=== PATIENT | male | born 1940 | race Caucasian/White ===

== ENCOUNTER 2018-06-24 11:15 | Inpatient (IN) ==
--- NOTE | 2018-06-24 11:26 | Emergency Department Note ---
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 - Related Data Allergies Allergy/AdvReac Type Severity Reaction Status Date / Time No Known Allergies Allergy Verified 06/24/18 11:19 All systems ED: reviewed and negative except as stated. Musculoskeletal: Reports: other (Right leg weakness) Physical Exam - General Limitations: no limitations General appearance: alert, in no apparent distress - Head Head exam: atraumatic, normocephalic, normal inspection - Eye Eye exam: Present: normal appearance, PERRL, EOMI - Chest Chest inspection: Present: normal inspection, symmetric chest wall rise - Respiratory Respiratory exam: Present: normal lung sounds bilaterally - Cardiovascular Cardiovascular exam: Present: regular rate, normal rhythm, normal heart sounds - Abdominal Exam Abdominal exam: Present: soft, Non-Tender. Absent: tenderness, distention, guarding, rebound, rigidity - Neurological Exam Neurological exam: Present: alert, oriented X3, CN II-XII intact, other (He has an unsteady gait and seems to be slightly dragging his right leg. No arm or leg drift) - Expanded Neurological Exam Patient oriented to: Present: person, place, time Speech: Present: fluid speech Cranial nerves: EOM function (II, III, IV, ): Normal, facial sensation (V): Normal, facial palsy (VII): Normal, gag reflex (IX): Normal, spinal accessory function (XI): Normal, tongue deviation (XII): Normal Cerebellar function: finger to nose: Normal, heel to rodriguez: Normal Cerebellar function: Romberg normal Motor strength - LUE: 5/5 Motor strength - RUE: 5/5 Motor strength - LLE: 5 Motor strength - RLE: 5 - Psychiatric Psychiatric exam: Present: normal affect, normal mood - Skin Skin exam: Present: warm, dry, intact, normal color Course Vital Signs Temperature 97.6 F 06/24/18 11:19 Pulse Rate 49 06/24/18 11:19 Respiratory Rate 18 06/24/18 11:19 Blood Pressure 165/74 06/24/18 11:19 O2 Sat by Pulse Oximetry 94 06/24/18 11:19 Temperature 97.6 F 06/24/18 11:19 Pulse Rate 49 06/24/18 11:19 Respiratory Rate 18 06/24/18 11:19 Blood Pressure 165/74 06/24/18 11:19 O2 Sat by Pulse Oximetry 94 06/24/18 11:19 Oxygen Delivery Oxygen Delivery Room Air Medical Decision Making - Lab Data Lab results reviewed: Yes I reviewed the patient's lab results. Lab results narrative: CBC shows thrombocytopenia at 1:15 BMP was unremarkable Troponin was low Result diagrams: 06/24/18 13:02 06/24/18 13:02 Lab Results 06/24/18 06/24/18 06/24/18 Range/Units 13:02 13:02 13:02 WBC 5.9 (4.3-11.1) K/mcL RBC 5.35 (4.19-5.50) M/mcL Hgb 16.9 (12.9-16.9) g/dL Hct 49.3 (37.5-50.1) % MCV 92.1 (83.0-100.0) fL MCH 31.6 (28.0-33.3) pg MCHC 34.3 (31.6-35.5) g/dL RDW 12.7 (11.5-14.5) % Plt Count 115 L (140-400) K/mcL MPV 11.2 (9.4-12.4) fL PT 12.4 H (9.4-12.1) Seconds INR 1.1 APTT 31.4 (26.0-36.0) Seconds Sodium 135 L (136-145) mEq/L Potassium 4.3 (3.5-5.1) mEq/L Chloride 102 (98-107) mEq/L Carbon Dioxide 27 (23-29) mEq/L BUN 22 (8-23) mg/dL Creatinine 1.15 (0.70-1.30) mg/dL Est GFR ( Amer) > 60 (> 60) Est GFR (Non-Af Amer) > 60 (> 60) BUN/Creatinine Ratio 19 (6-26) Glucose 209 H (70-105) mg/dL Calculated Osmolality 289 (280-300) Calcium 8.3 L (8.6-10.3) mg/dL Troponin I < 0.03 (< 0.04) ng/mL - Radiology Data Radiology results reviewed: Yes I reviewed the patient's radiology results. CT brain showed an old lacunar infarct MRI brain showed a small acute infarct in the deep white matter of the right parietal lobe and within the left paracentral rosalio - EKG Data EKG #1 EKG attestation: Yes I reviewed and interpreted this EKG. EKG results narrative: ECG shows sinus bradycardia, 49 bpm, normal intervals, left axis, normal ST and T waves Critical Care Time Critical Care Time: No
[2018-06-24 13:18] LABS: Hematocrit 49.3 % (37.5-50.1); Hemoglobin 16.9 g/dL (12.9-16.9); Mean Corpuscular HGB Conc 34.3 g/dL (31.6-35.5); Mean Corpuscular Hemoglobin 31.6 pg (28.0-33.3); Mean Corpuscular Volume 92.1 fL (83.0-100.0); Mean Platelet Volume 11.2 fL (9.4-12.4); Platelet Count 115 K/mcL (140-400); Red Blood Count 5.35 M/mcL (4.19-5.50); Red Cell Distribution Width 12.7 % (11.5-14.5)
[2018-06-24 13:31] LABS: INR 1.1; Prothrombin Time 12.4 Seconds (9.4-12.1)
[2018-06-24 13:34] LABS: Activated Partial Thrombo Time 31.4 Seconds (26.0-36.0)
[2018-06-24 13:38] LABS: BUN/Creatinine Ratio 19 (6-26); Blood Urea Nitrogen 22 mg/dL (8-23); Calcium 8.3 mg/dL (8.6-10.3); Carbon Dioxide 27 mEq/L (23-29); Chloride 102 mEq/L (98-107); Glucose 209 mg/dL (70-105); Osmolality,Calculated 289 (280-300); Potassium 4.3 mEq/L (3.5-5.1); Sodium 135 mEq/L (136-145); Troponin I < 0.03 ng/mL (< 0.04); eGFR For Non-African Americans > 60 (> 60)
[2018-06-24] MEDS ORDERED: Aspirin 81 MG TAB.CHEW PO SCH (14:00)
[2018-06-24] MEDS ORDERED: Aspirin 81 MG TAB.CHEW PO ONE (15:45)
[2018-06-24] MEDS ORDERED: Naloxone 0.4 MG/ML INJ IVP PRN (16:43)
[2018-06-24] MEDS ORDERED: Dextrose Gel 15 GM/37.5 ML TUBE PO PRN ×2 (16:43)
[2018-06-24] MEDS ORDERED: *HR* Dextrose 50 % in Water (Syg) 50 ML SYRINGE IVP PRN (16:43)
[2018-06-24] MEDS ORDERED: D5% in Water 1,000 ML IVC PRN (16:43)
--- NOTE | 2018-06-24 16:53 | Internal Med History&Physical ---
Date of Encounter: 06/24/18 Time of Encounter: 16:50 Internal Medicine - H&P: HPI Chief complaint: CVA Admitted From: Home Plans for Post Hospital Care: Home History of present illness: Mr. Jiang is a 77 year old male with a PMH of DM and HTN. He denies any prior history of CVA or TIA. He denies any history of A. fib. He presents to [facility] today with a chief complaint of right lower extremity weakness. His last known well was 0900 this morning. He reports that he got out of his car at approximately 0900 and noticed that his right leg was weak and that he was unable to bear weight. He denies any neurological signs or symptoms including headache, vision changes, dizziness, dysarthria, facial droop, confusion, memory changes, disequilibrium, paresthesias or loss of coordination. His symptoms are ongoing without improvement and he continues to have RLE weakness. It does not appear that a stroke alert was called in the ED. By the time of my assessment he was outside of the TPA window. Neuro imaging in the ED includes a CT of the head which was without acute intracranial abnormality. MRI brain revealed a small acute infarct within the deep white matter of the right parietal lobe and within the left paracentral portion of the rosalio. There is an old lacune withing the basal ganglia and mild chronic small vessel ischemic disease in th periventricular white matter of both cerebral hemispheres. Given the finding of an acute CVA he is being admitted admitted for further workup including TTE and B/L carotid dopplers. I will also consult neurology for further evaluation. Past Med Surg Social Fam HX - Past Medical History Medical history: diabetes, hypertension - Past Surgical History Additional surgical history: eye sx - Social History Smoking Status: Former smoker Smokeless Tobacco Status: Yes Alcohol use: rarely, occasionally Drug use: none - Family History Father Hx Family Endocrine Disorder: Yes (DM) Mother Race: Living Status: Age at : 65 Cause of : COLON CANCER Hx Family Cancer: Yes (COLON CANCER) Internal Medicine - H&P: Meds Allergy/AdvReac Type Severity Reaction Status Date / Time No Known Allergies Allergy Verified 06/24/18 11:19 All Systems PM: A 10-system review of systems was performed and is negative for pertinent findings except as documented above in the HPI. Review of systems: REVIEW OF SYSTEMS GENERAL: Negative for any nausea, vomiting, fevers, chills, or weight loss. NEUROLOGIC: Negative for any h/a, blurry vision, blind spots, double vision, facial asymmetry, dysphagia, dysarthria, hemisensory deficits, vertigo. Pos itive for hemiparesis and gait ataxia HEENT: Negative for any head trauma, neck trauma, neck stiffness, photophobia, phonophobia, sinusitis, rhinitis. CARDIAC: Negative for any chest pain, palpitations, tachycardia, dyspnea on exertion, paroxysmal nocturnal dyspnea, peripheral edema. PULMONARY: Negative for any shortness of breath, wheezing, or COPD GASTROINTESTINAL: Negative for any abdominal pain, nausea, vomiting, bright red blood per rectum, melena. GENITOURINARY: Negative for any dysuria, hematuria, incontinence. INTEGUMENTARY: Negative for any rashes, cuts, lesions or bruising - Constitutional Vitals: Temp Pulse Resp BP Pulse Ox 97.6 F 49 18 175/64 93 06/24/18 11:19 06/24/18 14:38 06/24/18 14:38 06/24/18 14:38 06/24/18 14:38 General appearance: Present: A&O X 3 Exam: PHYSICAL EXAMINATION: GENERAL: The patient is an elderly male, NAD, and O 3 HEENT: Head is normocephalic and atraumatic. EOMI, PERRLA NECK: Supple. No carotid bruits. No lymphadenopathy or thyromegaly. LUNGS: Clear to auscultation B/L AP and L. HEART: Regular rate and rhythm, S1, S2 without murmurs, rubs or gallops. ABDOMEN: Soft, nontender, and nondistended. Positive bowel sounds. No hepatosplenomegaly EXTREMITIES: Without any cyanosis, clubbing, rash, lesions or edema. NEUROLOGIC: MENTAL STATUS: A&Ox3, memory intact LANG/SPEECH: Naming and repetition intact, fluent, follows 3-step commands CRANIAL NERVES: II: PERRLA III, IV, : EOMI, no gaze preference or deviation, no nystagmus. V: normal sensation in V1, V2, and V3 segments bilaterally VII: no asymmetry, no nasolabial fold flattening VIII: normal hearing to speech IX, X: normal palatal elevation, no uvular deviation XI: 5/5 head turn and 5/5 shoulder shrug bilaterally XII: midline tongue protrusion MOTOR: 4/5 muscle power in Rt shoulder abductors/adductors, elbow flexors/extensors, 4/5 in Rt hip flexors/extensors, knee flexors/extensors, ankle dorsiflexors and planter flexors. 5/5 muscle power in Lt shoulder abductors/adductors, elbow flexors/extensors, 5/5 in Lt hip flexors/extensors, knee flexors/extensors, ankle dorsiflexors and planter flexors. SENSORY: Normal to touch, pinprick, vibration, temp all limbs No hemineglect, no extinction to double sided stimulation (visual & tactile) Romberg absent COORD: Dysmetria noted with nose to finger on Rt side and heel to rodriguez on Rt side, no tremor STATION: normal stance, no truncal ataxia GAIT: TARAH PSYCHIATRIC: Appropriate affect, denies SI/HI, without agitation or anxiety SKIN: No ulceration or induration present. Internal Med - H&P Results - Labs CBC & Chem 7: 06/24/18 13:02 06/24/18 13:02 Labs: Short CBC 06/24/18 Range/Units 13:02 WBC 5.9 (4.3-11.1) K/mcL Hgb 16.9 (12.9-16.9) g/dL Hct 49.3 (37.5-50.1) % Plt Count 115 L (140-400) K/mcL BMP 06/24/18 13:02 Sodium 135 L Potassium 4.3 Chloride 102 Carbon Dioxide 27 BUN 22 Creatinine 1.15 Glucose 209 H Calcium 8.3 L Cardiac Enzymes 06/24/18 Range/Units 13:02 Troponin I < 0.03 (< 0.04) ng/mL - EKG Data -: EKG Interpreted by Myself EKG shows normal: sinus rhythm Rate: bradycardia - EKG Data Prior EKG available for review: no Interpretation IM: other EKG comments: sinus zana with fascicular block 06/24/18 17:03 - Impressions ITS Impressions Brain MRI 06/24/18 11:34 IMPRESSION: Small acute infarct within the deep white matter of the right parietal lobe and within the left paracentral portion of the rosalio. Old lacune within the basal ganglia and rosalio. Mild chronic small vessel ischemic disease within the periventricular white matter of both cerebral hemispheres. Moderate cerebral atrophy. D/ / 06/24/2018 13:07:16 Tim Chu MD / drea Interpreting Provider: Tim Chu MD Head CT 06/24/18 11:34 IMPRESSION: No acute intracranial abnormality. White matter hypoattenuation described is typical of microvascular ischemic disease or as sequela of dysmyelinating/demyelinating processes. Remote bilateral basal ganglia lacunar stroke. D/ / Cole Stewart / Cole Stewart Interpreting Provider: Cole Stewart - Assessment and plan (1) Stroke Current Visit: Yes Status: Acute Assessment and plan: LKW 0900 06/24/18 Occurred this morning when getting out of car noticed RLE weakness; reports he was unable to bear weight d/t immense weakness; denies RUE impairment. however, his RUE is weaker than LUE on exam Denies any additional neurological s/SX including headache, vision change, paresthesias, dizziness, disequilibrium EKG sinus bradycardia MRI brain reveals a small acute infarct within the deep white matter of the right parietal lobe and within the left paracentral portion of the rosalio There is also an old lacunar within the basal ganglia and rosalio Per my assessment his neurological deficits persist with mild RUE and RLE stren gth 4/5 on right side No additional neurological deficits found on exam Consult neurology; I appreciate your input Start 325 mg by mouth aspirin daily Start 80 mg statin daily PRN hydralazine for SBP greater than 190 Obtain QUIQUE and bilateral carotid Dopplers Place on telemetry NIHSS modified's per protocol Neuro exams per protocol Dysphagia screening Qualifiers: CVA mechanism: embolism Precerebral and cerebral artery: middle cerebral artery Laterality of affected vessel: bilateral Qualified Code(s): 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 (2) Diabetes mellitus Current Visit: Yes Status: Acute Assessment and plan: Continue home basal insulin dose LSSIC AC/HS Diabetic diet adjust as necessary Qualifiers: Diabetes mellitus type: type 2 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: with senior 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 use Diabetes mellitus complication status: without complication Qualified Code(s): E11.9 - Type 2 diabetes mellitus without complications; 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
[2018-06-24] MEDS: *HR* Heparin 5,000 UNIT/ML VIAL SQ SCH (21:05)
[2018-06-24] MEDS: Insulin LISPRO 300 UNITS/3 ML VIAL SQ SCH (21:28)
[2018-06-24] MEDS: Insulin DETEMIR 100 UNIT/ML X5UNITS SQ SCH (21:29)
[2018-06-25 05:00] LABS: Hematocrit 45.4 % (37.5-50.1); Hemoglobin 15.9 g/dL (12.9-16.9); Mean Corpuscular Hemoglobin 32.1 pg (28.0-33.3); Mean Corpuscular Volume 91.7 fL (83.0-100.0); Mean Platelet Volume 11.2 fL (9.4-12.4); Platelet Count 113 K/mcL (140-400); Red Blood Count 4.95 M/mcL (4.19-5.50); Red Cell Distribution Width 12.8 % (11.5-14.5)
[2018-06-25 05:12] LABS: BUN/Creatinine Ratio 16 (6-26); Blood Urea Nitrogen 20 mg/dL (8-23); Calcium 8.5 mg/dL (8.6-10.3); Carbon Dioxide 28 mEq/L (23-29); Chloride 106 mEq/L (98-107); Chol/HDL Ratio 3.1 (0-4.9); Cholesterol 97 mg/dL (< 200); Glucose 129 mg/dL (70-105); HDL Cholesterol 31 mg/dL (40-59); LDL Cholesterol,Calculated 33 mg/dL (0-99); Osmolality,Calculated 294 (280-300); Potassium 3.9 mEq/L (3.5-5.1); Sodium 140 mEq/L (136-145); Triglycerides 167 mg/dL (< 150); eGFR For Non-African Americans 57 (> 60)
--- NOTE | 2018-06-25 06:22 | Electrocardiograph Report ---
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
[2018-06-25] MEDS: *HR* Heparin 5,000 UNIT/ML VIAL SQ SCH ×2 (06:39→16:49)
--- NOTE | 2018-06-25 08:15 | Neurology - Consult Note ---
<Alban Garber - Last Filed: 06/25/18 15:22> Date of Encounter: 06/25/18 Time of Encounter: 08:14 Assessment and Plan (1) Stroke Current Visit: Yes Status: Acute Patient presented with lower extremity weakness with onset 1 hour prior to arriv al to the ED. He denied associated paresthesias, loss of coordination, blurry vision, slurred speech, recent trauma, or history of similar symptoms. CT brain revealed no acute intracranial abnormality with white matter hypoattenuation and remote bilateral basal ganglia lacunar stroke. MRI brain revealed small acute infarct within the deep white matter of the right parietal lobe and within the left paracentral portion of the rosalio, moderate cerebral atrophy, and old lacune within the basal ganglia and rosalio. Echocardiogram revealed LVEF 65% with mild concentric LV hypertrophy. Carotid Doppler revealed nonstenotic plaque bilaterally. Lipid panel reviewed. Start Plavix. Stop Aspirin. Patient was started high intensity statin. PT/OT consulted. 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 Management per primary team. Qualifiers: Hypertension type: essential hypertension Qualified Code(s): I10 - Essential (primary) hypertension (3) Bradycardia Current Visit: Yes Status: Chronic Patient reports recently increasing his home dose of Coreg. (4) Diabetes mellitus Current Visit: Yes Status: Chronic Management per primary team. 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 Jiang is a 77 year old male with a past medical history of hypertension, chronic bradycardia, and diabetes mellitus who presented complaining of lower extremity weakness with onset 1 hour prior to arrival to the ED. Patient reported difficulty bearing weight on his right leg and dragging his foot with ambulation. He denied associated paresthesias, loss of coordination, blurry vision, slurred speech, recent trauma, or history of similar symptoms. In the ED, CT brain revealed no acute intracranial abnormality with white matter hypoattenuation and remote bilateral basal ganglia lacunar stroke. Patient did not receive TPA the ED and right lower extremity weakness is present until this time. MRI brain revealed small acute infarct within the deep white matter of the right parietal lobe and within the left paracentral portion of the rosalio, moderate cerebral atrophy, and old lacune within the basal ganglia and rosalio. Neurology was consulted for further recommendations. Past Med Surg Social Fam HX - Past Medical History Medical history: diabetes, hypertension Additional medical history: HLD prostate ca Psychiatric history: anxiety - Past Surgical History Surgical History: cholecystectomy Additional surgical history: eye sx - Social History Smoking Status: Former smoker Smokeless Tobacco Status: Yes Alcohol use: rarely, occasionally Drug use: none - Family History Father Hx Family Endocrine Disorder: Yes (DM) Mother Race: Living Status: Age at : 65 Cause of : COLON CANCER Hx Family Cancer: Yes (colon) Medications and Allergies Amlodipine Besylate 10 mg PO DAILY 06/25/18 [History] Calcium Carbonate [Calcium] 500 mg PO 06/25/18 [History] Carvedilol [Coreg] 12.5 mg PO BIDWM 06/25/18 [History] Cholecalciferol (D-3) [Vitamin D] 1,000 unit PO DAILY 06/25/18 [History] Insulin ASPART [Novolog Flexpen] 10 unit SQ TIDAC 06/25/18 [History] Insulin Glargine,Hum.rec.anlog [Lantus Solostar] 33 unit SQ DAILY 06/25/18 [History] Lisinopril [Zestril] 20 mg PO DAILY 06/25/18 [History] Oxybutynin [Ditropan] 5 mg PO BID 06/25/18 [History] Pantoprazole Sodium [Protonix] 40 mg PO DAILY 06/25/18 [History] Sertraline [Zoloft] 25 mg PO DAILY 06/25/18 [History] Simvastatin [Zocor] 20 mg PO HS 06/25/18 [History] Tamsulosin HCl [Flomax] 0.4 mg PO DAILY 06/25/18 [History] Triamterene/HCTZ 37.5/25mg [Dyazide] 1 each PO DAILY 06/25/18 [History] Allergy/AdvReac Type Severity Reaction Status Date / Time No Known Allergies Allergy Verified 06/24/18 11:19 All Systems: The remainder of the systems were reviewed and are negative - Constitutional Constitutional ROS IM: no chills, no fever(s), no frequent falls - Nose, Mouth, Throat Nose, mouth and throat: no disequilibrium, no headache(s) - Cardiovascular Cardiovascular ROS IM: no chest pain, no irregular heart rhythm - Gastrointestinal Gastrointestinal: nausea, vomiting, no dyspepsia, no dysphagia - Genitourinary Genitourinary ROS: no dysuria, no urinary frequency, no urinary urgency - Musculoskeletal Musculoskeletal ROS IM: muscle weakness, no back pain, no neck pain - Integumentary Integumentary IM: no new lesions, no rash - Neurological Neurological ROS: focal weakness, weakness, no radicular pain, no tingling - Psychiatric Psychiatric general PM: no anxiety, no depression Physical Examination - Vital Signs Vital Signs: Initial Vital Signs Temp Pulse Resp BP Pulse Ox 97.6 F 49 18 165/74 94 06/24/18 11:19 06/24/18 11:19 06/24/18 11:19 06/24/18 11:19 06/24/18 11:19 - Constitutional General appearance: comfortable - Neurologic Sensorimotor examination: intact Motor examination - right side: 4/5: hip flexors, tibialis Anterior, quadriceps, toe extension (EHL), plantarflexion, 5/5: deltoids, biceps, triceps, wrist flexion, wrist extension, 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 Motor examination - left side: 5/5: deltoids, biceps, triceps, wrist flexion, wrist extension, hip flexors, 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, quadriceps, tibialis Anterior, toe extension (EHL), plantarflexion Detailed sensory examination: intact, light touch Reflex and gait examination: intact Reflexes: Biceps: 2+, Triceps: 2+, Brachioradialis: 2+, Patella: 3+ (right), Achilles: 3+ (right) Mental Status Examination: awake, alert, oriented to person, oriented to place, oriented to time, follows commands appropriately, answers questions appropriately, no agnosia, no aphasia, no aproxia Cranial nerve examination: PERRL, EOMI, visual moreno intact, sensory to face intact, mastication intact, no facial asymmetry is present, no dysarthria, hearing is intact symmetrically, flexes SCM and trapezius muscles symmetrically with full power, tongue protrudes midline, no atrophy or facial fasiculations present Cerebellar examination: no dysmetria, performs finger to nose and heel to rodriguez symmetrically without ataxia, no gait ataxia, no truncal ataxia, no difficulty with rapid alternating movements Results - Laboratory Findings CBC and BMP: 06/25/18 04:27 06/25/18 04:27 Abnormal lab findings: Abnormal lab results Plt Count 113 K/mcL (140-400) L 06/25/18 04:27 PT 12.4 Seconds (9.4-12.1) H 06/24/18 13:02 Est GFR (Non-Af Amer) 57 (> 60) L 06/25/18 04:27 Glucose 129 mg/dL (70-105) H 06/25/18 04:27 Calcium 8.5 mg/dL (8.6-10.3) L 06/25/18 04:27 Triglycerides 167 mg/dL (< 150) H 06/25/18 04:27 VLDL Cholesterol, Calc 33 mg/dL (< 31) H 06/25/18 04:27 HDL Cholesterol 31 mg/dL (40-59) L 06/25/18 04:27 - Diagnostic Findings Additional findings: ITS Impressions Brain MRI 06/24/18 11:34 IMPRESSION: Small acute infarct within the deep white matter of the right parietal lobe and within the left paracentral portion of the rosalio. Old lacune within the basal ganglia and rosalio. Mild chronic small vessel ischemic disease within the periventricular white matter of both cerebral hemispheres. Moderate cerebral atrophy. D/ / 06/24/2018 13:07:16 Tim Chu MD / drea Interpreting Provider: Tim Chu MD Head CT 06/24/18 11:34 IMPRESSION: No acute intracranial abnormality. White matter hypoattenuation described is typical of microvascular ischemic disease or as sequela of dysmyelinating/demyelinating processes. Remote bilateral basal ganglia lacunar stroke. D/ / Cole Stewart / Cole Stewart Interpreting Provider: Cole Stewart Echocardiogram 06/24/18 15:35 Impressions: LVEF 65%. Normal LV chamber size and function. Mild concentric left ventricular hypertrophy. Mild left ventricular diastolic dysfunction. Normal right ventricular structure and function. No evidence of pulmonary hypertension. No significant valvular dysfunction. Negative agitated saline study for intra-cardiac shunting. Left Ventricular Wall Motion: Rest Echo Findings All wall segments showed normal motion. Findings: Study Quality * Technically adequate exam. ECG Findings * Sinus bradycardia. Left Ventricle * LVEF 65%. * Normal LV chamber size and function. * Mild concentric left ventricular hypertrophy. * Mild left ventricular diastolic dysfunction. Right Ventricle * Normal right ventricular structure and function. Left Atrium * Mildly dilated left atrium. Right Atrium * Normal right atrial size. Aortic Valve * Trileaflet aortic valve with normal function. * No aortic regurgitation. * No aortic stenosis. Mitral Valve * Focally calcified mitral valve leaflets. * No mitral regurgitation. * No mitral stenosis. Tricuspid Valve * Normal tricuspid valve structure and function. * Trace tricuspid regurgitation. * No evidence of pulmonary hypertension. Pulmonic Valve * Normal pulmonic valve structure and function. * No pulmonic regurgitation. Aorta * Normally sized aortic root. Pericardium * The pericardium appears normal. IVC * Normal IVC dimensions and inspiratory collapse. Pulmonary Artery * Normal visualized portions of the main pulmonary artery. Consult Discharge Plan - Plan Referrals: Maria De Jesus Zhang MD [Primary Care Provider] - <Jam Monsalve - Last Filed: 06/25/18 15:36> Date of Encounter: 06/25/18 Time of Encounter: 15:30 Assessment and Plan (1) Stroke Current Visit: Yes Status: Acute Case was discussed with the neurology resident as well as the medicine attending. I agree with the assessment and plan as stated above. We will reevaluate him tomorrow. 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 The case was discussed with the neurology resident. I agree with his documentation as stated above. Patient is also had an echocardiogram completed and reveals no evidence of valvular thrombus, ejection fraction was 65%. I did personally review the MRI scan of the brain and agree with the documenttation of the radiologist. Patient does have several stroke risk factors including uncon trolled hypertension, diabetes mellitus. He states he quit smoking many years ago. He is currently taking aspirin 81 mg daily. Lipid panel reveals elevated cholesterol and triglycerides, glucose level was elevated at 207 upon admission. He is alert and oriented and able to provide his own medical history. All Systems: The remainder of the systems were reviewed and are negative Review of Systems: The balance of the systems review is negative. Physical Examination - Vital Signs Vital Signs: Initial Vital Signs Temp Pulse Resp BP Pulse Ox 97.6 F 49 18 165/74 94 06/24/18 11:19 18 11:19 06/24/18 11:19 06/24/18 11:19 06/24/18 11:19 - Exam Exam: The patient was seen and examined independently, I agree with the documentation provided by the resident with regard to the neurologic examination. Results - Laboratory Findings CBC and BMP: 06/25/18 04:27 06/25/18 04:27 Abnormal lab findings: Abnormal lab results Plt Count 113 K/mcL (140-400) L 06/25/18 04:27 PT 12.4 Seconds (9.4-12.1) H 06/24/18 13:02 Est GFR (Non-Af Amer) 57 (> 60) L 06/25/18 04:27 Glucose 129 mg/dL (70-105) H 06/25/18 04:27 Calcium 8.5 mg/dL (8.6-10.3) L 06/25/18 04:27 Triglycerides 167 mg/dL (< 150) H 06/25/18 04:27 VLDL Cholesterol, Calc 33 mg/dL (< 31) H 06/25/18 04:27 HDL Cholesterol 31 mg/dL (40-59) L 06/25/18 04:27
[2018-06-25] MEDS: Insulin LISPRO 300 UNITS/3 ML VIAL SQ SCH ×4 (08:39→22:44)
[2018-06-25] MEDS ORDERED: Aspirin 325 MG TABLET PO SCH (09:00)
[2018-06-25] MEDS: *HR* HYDROcodone/Acet 5/325 mg TABLET PO PRN (12:35)
[2018-06-25] MEDS ORDERED: Lisinopril 20 MG TABLET PO SCH (15:30)
--- NOTE | 2018-06-25 16:30 | Internal Med Progress Note ---
Hospitalist Progress Note - Encounter Date of Encounter: 06/25/18 Time of Encounter: 08:00 - Subjective Interval History: Patient was seen and examined at bedside, daughter is at bedside all questions answered, reports mild spasm of his right lower extremity which started today. He denies any overnight events, tolerating by mouth diet denies pain - Exam Vitals: Temp Pulse Resp BP Pulse Ox 98.4 F 53 18 183/78 94 06/25/18 15:25 06/25/18 15:25 06/25/18 15:25 06/25/18 15:25 06/25/18 15:25 Exam: General: Patient is alert, oriented, no acute distress, overweight Head: atraumatic, normocephalic, Eye: normal appearance, PERRL, no scleral icterus, no conjunctival injection ENT: mucous membranes moist, normal external ear exam Neck: normal inspection, trachea midline, full ROM, no carotid bruits Chest: normal inspection, symmetric chest rise Respiratory: Good respiratory effort. Bilateral breath sounds are clear without wheezing, crackles, or rhonchi. Cardiovascular: bradycardic s1 and s2 No clicks, rubs, gallops, or murmors. Abdomen: Bowel sounds present normoactive x-4 quadrants. Abdomen is soft, nondistended. no Epigastric tenderness. No guarding or rebound. No organomegaly noted, obese musculoskeletal: Spontaneously moving all extremities. 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 Motor examination - left side: 5/5: deltoids, biceps, triceps, wrist flexion, wrist extension, hip flexors, audio recording engineer, quadriceps, tibialis Anterior, toe extension (EHL), plantarflexion Detailed sensory examination: intact, light touch Reflex and gait examination: intact Reflexes: Biceps: 2+, Triceps: 2+, Brachioradialis: 2+, Patella: 3+ (right), Achilles: 3+ (right) Mental Status Examination: awake, alert, oriented to person, oriented to place, oriented to time, follows commands appropriately, answers questions appropriately, no agnosia, no aphasia, no aproxia Cranial nerve examination: PERRL, EOMI, visual moreno intact, sensory to face intact, mastication intact, no facial asymmetry is present, no dysarthria, hearing is intact symmetrically, flexes SCM and trapezius muscles symmetrically with full power, tongue protrudes midline, no atrophy or facial fasiculations present Cerebellar examination: no dysmetria, performs finger to nose and heel to rodriguez symmetrically without ataxia, no gait ataxia, no truncal ataxia, no difficulty with rapid alternating movements - Assessment and Plan (1) Stroke Current Visit: Yes Status: Acute Assessment and Plan: acute infarct within the deep white matter of the right parietal lobe and within the left paracentral portion of the rosalio, moderate cerebral atrophy, and old lacune within the basal ganglia and rosalio with minimal residual weakness CT brain revealed no acute intracranial abnormality with white matter hypoa ttenuation and remote bilateral basal ganglia lacunar stroke. MRI brain revealed small acute infarct within the deep white matter of the right parietal lobe and within the left paracentral portion of the rosalio, moderate cerebral atrophy, and old lacune within the basal ganglia and rosalio. Echocardiogram revealed LVEF 65% with mild concentric LV hypertrophy. Carotid Doppler revealed nonstenotic plaque bilaterally as per neurology . Lipid panel reviewed. Started on Plavix as symptoms occurred on aspirin Started on Lipitor 80 Neuro checks as per protocol We will follow A1c and TSH Neurology recommendations appreciated PT/OT consulted. (2) Diabetes mellitus Current Visit: Yes Status: Chronic Assessment and Plan: Continue home basal insulin dose LSSIC AC/HS Diabetic diet A1c in a.m. (3) HTN (hypertension) Current Visit: Yes Status: Acute Assessment and Plan: Will slowly resume home BP medications if not contraindicated to avoid abrupt drop in blood pressure as he has had a recent stroke. We will start with lisinopril 20 mg We will hold Coreg as he is bradycardic Amlodipine to be resumed in the a.m. We will continue to titrate as per BP (4) DVT prophylaxis Current Visit: Yes Status: Acute Assessment and Plan: Heparin subcutaneous - Time Spent with Patient Total time spent is greater than 50% in coordination of care (as documented) at patient's floor/unit and/or counseling patient: Internal Medicine: Result - Labs CBC & Chem 7: 06/25/18 04:27 06/25/18 04:27 Labs: Short CBC 12/12/18 Range/Units 04:27 WBC 5.8 (4.3-11.1) K/mcL Hgb 15.9 (12.9-16.9) g/dL Hct 45.4 (37.5-50.1) % Plt Count 113 L (140-400) K/mcL BMP 06/25/18 04:27 Sodium 140 Potassium 3.9 Chloride 106 Carbon Dioxide 28 BUN 20 Creatinine 1.22 Glucose 129 H Calcium 8.5 L - ABG Interpretation ABG results: PT/INR, D-dimer PT 12.4 Seconds (9.4-12.1) H 06/24/18 13:02 - Impressions Impressions Echocardiogram 06/24/18 15:35 Impressions: LVEF 65%. Normal LV chamber size and function. Mild concentric left ventricular hypertrophy. Mild left ventricular diastolic dysfunction. Normal right ventricular structure and function. No evidence of pulmonary hypertension. No significant valvular dysfunction. Negative agitated saline study for intra-cardiac shunting. Left Ventricular Wall Motion: Rest Echo Findings All wall segments showed normal motion. Findings: Study Quality * Technically adequate exam. ECG Findings * Sinus bradycardia. Left Ventricle * LVEF 65%. * Normal LV chamber size and function. * Mild concentric left ventricular hypertrophy. * Mild left ventricular diastolic dysfunction. Right Ventricle * Normal right ventricular structure and function. Left Atrium * Mildly dilated left atrium. Right Atrium * Normal right atrial size. Aortic Valve * Trileaflet aortic valve with normal function. * No aortic regurgitation. * No aortic stenosis. Mitral Valve * Focally calcified mitral valve leaflets. * No mitral regurgitation. * No mitral stenosis. Tricuspid Valve * Normal tricuspid valve structure and function. * Trace tricuspid regurgitation. * No evidence of pulmonary hypertension. Pulmonic Valve * Normal pulmonic valve structure and function. * No pulmonic regurgitation. Aorta * Normally sized aortic root. Pericardium * The pericardium appears normal. IVC * Normal IVC dimensions and inspiratory collapse. Pulmonary Artery * Normal visualized portions of the main pulmonary artery. 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
[2018-06-25] MEDS: Ondansetron ODT 4 MG TAB.RAPDIS SL PRN (16:57)
[2018-06-25] MEDS: Insulin DETEMIR 100 UNIT/ML X5UNITS SQ SCH (22:44)
[2018-06-26] MEDS: *HR* Heparin 5,000 UNIT/ML VIAL SQ SCH ×2 (06:59→16:52)
[2018-06-26 07:17] LABS: Thyroid Stimulating Hormone 1.759 mcIU/mL (0.340-5.600)
[2018-06-26 07:37] LABS: Estimated Average Glucose 163 mg/dl; Hemoglobin A1C 7.3 %
--- NOTE | 2018-06-26 08:30 | Neurology Progress Note ---
Date of Encounter: 06/26/18 Time of Encounter: 08:28 Assessment and Plan (1) Stroke Current Visit: Yes Status: Acute At this point his deficits have stabilized. Carotid Doppler study revealed nonstenotic plaquing, echocardiogram was negative for cardioembolic source. At this time I would recommend normalizing his blood pressure. Aggressive management of her stroke risk factors will be paramount. I would recommend discontinuing the aspirin and starting Plavix 75 mg daily. Statin therapy is also standard. He will likely need inpatient rehabilitation therapy. He lives with his son however his son works in his home by himself much of the day. He was walking with a walker even prior to this hospitalization. He would certainly be a fall risk at this point. No further neurologic workup is necessary. I will reevaluate him at your request. 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 Currently sitting up in bed eating his breakfast without difficulty watching television. He is alert and oriented. He denies any further complaints. His deficits of stabilized. His blood pressure is still running in the 170s systolic. Carotid Doppler study reveals nonstenotic plaquing echocardiogram and it revealed no evidence of a cardioembolic source. His neurologic examination is unchanged. Objective - Constitutional Vitals: Temp Pulse Resp BP Pulse Ox 98.0 F 45 16 170/80 95 06/26/18 07:06 06/26/18 07:06 06/26/18 07:06 06/26/18 07:06 06/26/18 07:06 - Neurological Exam Sensorimotor examination: Present: intact Motor examination - right side: 4/5: hip flexors, tibialis Anterior, quadriceps, toe extension (EHL), plantarflexion, 5/5: deltoids, biceps, triceps, claim review medical director Motor examination - left side: 5/5: deltoids, biceps, triceps, wrist flexion, wrist extension, hip flexors, claim review medical director, quadriceps, tibialis Anterior, toe extension (EHL), plantarflexion Sensation intact: Present: intact, light touch Reflex and gait examination: intact Mental Status Examination: Present: awake, alert, oriented to person, oriented to place, oriented to time, follows commands appropriately, answers questions appropriately, no agnosia, no aphasia, no aproxia Cranial nerve examination: Present: PERRL, EOMI, visual moreno intact, sensory to face intact, mastication intact, no facial asymmetry is present, no dysarthria, hearing is intact symmetrically, flexes SCM and trapezius muscles symmetrically with full power, tongue protrudes midline, no atrophy or facial fasiculations present Cerebellar examination: Present: no dysmetria, performs finger to nose and heel to rodriguez symmetrically without ataxia, no gait ataxia, no truncal ataxia, no difficulty with rapid alternating movements Results - Laboratory Findings CBC and BMP: 06/25/18 04:27 06/25/18 04:27 Abnormal lab findings: Abnormal lab results Plt Count 113 K/mcL (140-400) L 06/25/18 04:27 PT 12.4 Seconds (9.4-12.1) H 06/24/18 13:02 Est GFR (Non-Af Amer) 57 (> 60) L 06/25/18 04:27 Glucose 129 mg/dL (70-105) H 06/25/18 04:27 POC Glucose 235 mg/dL (70-99) H 06/25/18 20:36 Hemoglobin A1c 7.3 % (-5.6) H 06/26/18 06:04 Calcium 8.5 mg/dL (8.6-10.3) L 06/25/18 04:27 Triglycerides 167 mg/dL (< 150) H 06/25/18 04:27 VLDL Cholesterol, Calc 33 mg/dL (< 31) H 06/25/18 04:27 HDL Cholesterol 31 mg/dL (40-59) L 06/25/18 04:27 Consult Discharge Plan - Plan Referrals: Maria De Jesus Zhang MD [Primary Care Provider] -
[2018-06-26] MEDS: Insulin LISPRO 300 UNITS/3 ML VIAL SQ SCH ×4 (09:41→21:03)
[2018-06-26] MEDS: amLODIPine 5 MG TABLET PO SCH (09:44)
[2018-06-26] MEDS: Lisinopril 20 MG TABLET PO SCH (09:44)
[2018-06-26] MEDS: *HR* HYDROcodone/Acet 5/325 mg TABLET PO PRN (09:49)
--- NOTE | 2018-06-26 13:24 | Internal Med Progress Note ---
Hospitalist Progress Note - Encounter Date of Encounter: 06/26/18 Time of Encounter: 09:22 - Subjective Interval History: Patient was seen and examined at bedside, he is an agreement with acute rehab, and understands that the [facility] has no bed available. He denies any overnight events, tolerating by mouth diet denies pain. - Exam Vitals: Temp Pulse Resp BP Pulse Ox 98.0 F 50 16 171/69 96 06/26/18 07:06 06/26/18 11:11 06/26/18 11:11 06/26/18 11:11 06/26/18 11:11 Exam: General: Patient is alert, oriented, no acute distress, overweight Head: atraumatic, normocephalic, Eye: normal appearance, PERRL, no scleral icterus, no conjunctival injection ENT: mucous membranes moist, normal external ear exam Neck: normal inspection, trachea midline, full ROM, no carotid bruits Chest: normal inspection, symmetric chest rise Respiratory: Good respiratory effort. Bilateral breath sounds are clear without wheezing, crackles, or rhonchi. Cardiovascular: bradycardic s1 and s2 No clicks, rubs, gallops, or murmors. Abdomen: Bowel sounds present normoactive x-4 quadrants. Abdomen is soft, nondistended. no Epigastric tenderness. No guarding or rebound. No organomegaly noted, obese musculoskeletal: Spontaneously moving all extremities. 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 neuro Sensorimotor examination: intact Motor examination - right side: 4/5: hip flexors, tibialis Anterior, quadriceps, toe extension (EHL), plantarflexion, 5/5: deltoids, biceps, triceps, wrist flexion, wrist extension, toilet attendant Motor examination - left side: 5/5: deltoids, biceps, triceps, wrist flexion, wrist extension, hip flexors, toilet attendant, quadriceps, tibialis Anterior, toe extension (EHL), plantarflexion Detailed sensory examination: intact, light touch Reflex and gait examination: intact Reflexes: Biceps: 2+, Triceps: 2+, Brachioradialis: 2+, Patella: 3+ (right), Achilles: 3+ (right) Mental Status Examination: awake, alert, oriented to person, oriented to place, oriented to time, follows commands appropriately, answers questions a ppropriately, no agnosia, no aphasia, no aproxia Cranial nerve examination: PERRL, EOMI, visual moreno intact, sensory to face intact, mastication intact, no facial asymmetry is present, no dysarthria, hearing is intact symmetrically, flexes SCM and trapezius muscles symmetrically with full power, tongue protrudes midline, no atrophy or facial fasiculations present Cerebellar examination: no dysmetria, performs finger to nose and heel to rodriguez symmetrically without ataxia, no gait ataxia, no truncal ataxia, no difficulty with rapid alternating movements - Assessment and Plan (1) Stroke Current Visit: Yes Status: Acute Assessment and Plan: acute infarct within the deep white matter of the right parietal lobe and within the left paracentral portion of the rosalio, moderate cerebral atrophy, and old lacune within the basal ganglia and rosalio with minimal residual weakness CT brain revealed no acute intracranial abnormality with white matter hypoattenuation and remote bilateral basal ganglia lacunar stroke. MRI brain revealed small acute infarct within the deep white matter of the right parietal lobe and within the left paracentral portion of the rosalio, moderate cerebral atrophy, and old lacune within the basal ganglia and rosalio. Echocardiogram revealed LVEF 65% with mild concentric LV hypertrophy. Carotid Doppler revealed nonstenotic plaque bilaterally as per neurology . Lipid panel reviewed. on Plavix as symptoms occurred on aspirin Started on Lipitor 80 Neuro checks as per protocol We will follow A1c 7.3 TSH 1.759- free t4 0.83 Neurology recommendations appreciated PT/OT - recommend Acute rehab- SW and CM on board (2) Diabetes mellitus Current Visit: Yes Status: Chronic Assessment and Plan: Continue home basal insulin dose [facility] AC/HS Diabetic diet A1c 7.3 was counseled (3) HTN (hypertension) Current Visit: Yes Status: Acute Assessment and Plan: Will slowly resume home BP medications if not contraindicated to avoid abrupt drop in blood pressure as he has had a recent stroke. BP elevated lisnopril increased to 40 mg daily home diuretics started We will hold Coreg as he is bradycardic Amlodipine to be resumed in the a.m. We will continue to titrate as per BP (4) DVT prophylaxis Current Visit: Yes Status: Acute Assessment and Plan: Heparin subcutaneous - Time Spent with Patient Total time spent is greater than 50% in coordination of care (as documented) at patient's floor/unit and/or counseling patient: Internal Medicine: Result - Labs CBC & Chem 7: 06/25/18 04:27 06/25/18 04:27 - ABG Interpretation ABG results: PT/INR, D-dimer PT 12.4 Seconds (9.4-12.1) H 06/24/18 13:02 Consult Discharge Plan - Plan Referrals: Maria De Jesus Zhang MD [Primary Care Provider] - (1) Stroke Qualifiers: CVA mechanism: embolism Precerebral and cerebral artery: middle cerebral artery Laterality of affected vessel: bilateral Qualified Code(s): 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
[2018-06-26] MEDS: Ondansetron ODT 4 MG TAB.RAPDIS SL PRN (13:49)
[2018-06-26] MEDS: Insulin DETEMIR 100 UNIT/ML X5UNITS SQ SCH (21:10)
[2018-06-27] MEDS: *HR* Heparin 5,000 UNIT/ML VIAL SQ SCH ×2 (06:03→17:08)
[2018-06-27] MEDS: Insulin LISPRO 300 UNITS/3 ML VIAL SQ SCH ×4 (08:03→20:27)
[2018-06-27] MEDS: Furosemide 40 MG TABLET PO SCH (10:08)
[2018-06-27] MEDS: amLODIPine 5 MG TABLET PO SCH (10:09)
[2018-06-27] MEDS: Lisinopril 20 MG TABLET PO SCH (10:09)
[2018-06-27] MEDS: *HR* HYDROcodone/Acet 5/325 mg TABLET PO PRN (10:16)
[2018-06-27] MEDS: Ondansetron ODT 4 MG TAB.RAPDIS SL PRN ×2 (10:17→20:26)
--- NOTE | 2018-06-27 10:46 | Internal Med Progress Note ---
Hospitalist Progress Note - Encounter Date of Encounter: 06/27/18 Time of Encounter: 08:00 - Subjective Interval History: Patient was seen and examined at bedside, has no complaints, tolerating PO diet. did have an episode of nausea this AM however he is currently eating breakfast and has no complaints. denies fever, chills, CP, SOB, loss of function in his extremities. - Exam Vitals: Temp Pulse Resp BP Pulse Ox 98.7 F 53 12 175/72 97 06/27/18 06:45 06/27/18 06:45 06/27/18 06:45 06/27/18 06:45 06/27/18 06:45 Exam: General: Patient is alert, oriented, no acute distress, overweight Head: atraumatic, normocephalic, Eye: normal appearance, PERRL, no scleral icterus, no conjunctival injection ENT: mucous membranes moist, normal external ear exam Neck: normal inspection, trachea midline, full ROM, no carotid bruits Chest: normal inspection, symmetric chest rise Respiratory: Good respiratory effort. Bilateral breath sounds are clear without wheezing, crackles, or rhonchi. Cardiovascular: bradycardic s1 and s2 No clicks, rubs, gallops, or murmors. Abdomen: Bowel sounds present normoactive x-4 quadrants. Abdomen is soft, nondistended. no Epigastric tenderness. No guarding or rebound. No organomegaly noted, obese musculoskeletal: Spontaneously moving all extremities. 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 neuro ( as per neurology team) Sensorimotor examination: intact Motor examination - right side: 4/5: hip flexors, tibialis Anterior, quadriceps, toe extension (EHL), plantarflexion, 5/5: deltoids, biceps, triceps, wrist flexion, wrist extension, soil surveyor Motor examination - left side: 5/5: deltoids, biceps, triceps, wrist flexion, wrist extension, hip flexors, soil surveyor, quadriceps, tibialis Anterior, toe extension (EHL), plantarflexion Detailed sensory examination: intact, light touch Reflex and gait examination: intact Reflexes: Biceps: 2+, Triceps: 2+, Brachioradialis: 2+, Patella: 3+ (right), Achilles: 3+ (right) Mental Status Examination: awake, alert, oriented to person, oriented to place, oriented to time, follows commands appropriately, answers questions appropriately, no agnosia, no aphasia, no aproxia Cranial nerve examination: PERRL, EOMI, visual moreno intact, sensory to face intact, mastication intact, no facial asymmetry is present, no dysarthria, hearing is intact symmetrically, flexes SCM and trapezius muscles symmetrically with full power, tongue protrudes midline, no atrophy or facial fasiculations present Cerebellar examination: no dysmetria, performs finger to nose and heel to rodriguez symmetrically without ataxia, no gait ataxia, no truncal ataxia, no difficulty with rapid alternating movements - Assessment and Plan (1) Stroke Current Visit: Yes Status: Acute Assessment and Plan: acute infarct within the deep white matter of the right parietal lobe and within the left paracentral portion of the rosalio, moderate cerebral atrophy, and old lacune within the basal ganglia and rosalio with minimal residual weakness CT brain revealed no acute intracranial abnormality with white matter hypoattenuation and remote bilateral basal ganglia lacunar stroke. MRI brain revealed small acute infarct within the deep white matter of the right parietal lobe and within the left paracentral portion of the rosalio, moderate cerebral atrophy, and old lacune within the basal ganglia and rosalio. Echocardiogram revealed LVEF 65% with mild concentric LV hypertrophy. Carotid Doppler revealed nonstenotic plaque bilaterally Lipid panel reviewed. on Plavix as symptoms occurred on aspirin Started on Lipitor 80 Neuro checks as per protocol We will follow A1c 7.3 TSH 1.759- free t4 0.83 Neurology recommendations appreciated PT/OT - recommend Acute rehab- SW and CM on board cardiology consulted for Holter monitor- as per cardiology team they have reviewed telemetry and recommend OP follow up for holter monitor. (2) Diabetes mellitus Current Visit: Yes Status: Chronic Assessment and Plan: Continue home basal insulin dose [facility] AC/HS Diabetic diet A1c 7.3 was counseled (3) HTN (hypertension) Current Visit: Yes Status: Acute Assessment and Plan: On amlodipine 10 mg by mouth daily Started on Lasix 40 mg by mouth daily Lisinopril 40 mg daily Will consider adding another medication if BP remains uncontrolled Coreg on hold as he has bradycardia. (4) DVT prophylaxis Current Visit: Yes Status: Acute Assessment and Plan: I printed subcutaneous - Time Spent with Patient Total time spent is greater than 50% in coordination of care (as documented) at patient's floor/unit and/or counseling patient: Internal Medicine: Result - Labs CBC & Chem 7: 06/25/18 04:27 06/25/18 04:27 - ABG Interpretation ABG results: PT/INR, D-dimer PT 12.4 Seconds (9.4-12.1) H 06/24/18 13:02 Consult Discharge Plan - Plan Referrals: Maria De Jesus Zhang MD [Primary Care Provider] - (1) Stroke Qualifiers: CVA mechanism: embolism Precerebral and cerebral artery: middle cerebral artery Laterality of affected vessel: bilateral Qualified Code(s): 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
[2018-06-27] MEDS: Insulin DETEMIR 100 UNIT/ML X5UNITS SQ SCH (20:27)
[2018-06-28] MEDS: *HR* Heparin 5,000 UNIT/ML VIAL SQ SCH ×2 (06:18→17:10)
[2018-06-28] MEDS: Insulin LISPRO 300 UNITS/3 ML VIAL SQ SCH ×4 (09:11→21:02)
[2018-06-28] MEDS: Lisinopril 20 MG TABLET PO SCH (09:14)
[2018-06-28] MEDS: Furosemide 40 MG TABLET PO SCH (09:15)
[2018-06-28] MEDS: amLODIPine 5 MG TABLET PO SCH (09:15)
--- NOTE | 2018-06-28 14:55 | Internal Med Progress Note ---
Hospitalist Progress Note - Encounter Date of Encounter: 06/28/18 Time of Encounter: 08:00 - Subjective Interval History: Patient was seen and examined at bedside, has no complaints, tolerating PO diet. Tolerating by mouth diet, nausea resolved. denies fever, chills, CP, SOB, loss of function in his extremities. - Exam Vitals: Temp Pulse Resp BP Pulse Ox 98.2 F 48 17 148/54 97 06/28/18 07:09 06/28/18 07:09 06/28/18 07:09 06/28/18 07:09 06/28/18 07:09 Exam: General: Patient is alert, oriented, no acute distress, overweight Head: atraumatic, normocephalic, Eye: normal appearance, PERRL, no scleral icterus, no conjunctival injection ENT: mucous membranes moist, normal external ear exam Neck: normal inspection, trachea midline, full ROM, no carotid bruits Chest: normal inspection, symmetric chest rise Respiratory: Good respiratory effort. Bilateral breath sounds are clear without wheezing, crackles, or rhonchi. Cardiovascular: bradycardic s1 and s2 No clicks, rubs, gallops, or murmors. Abdomen: Bowel sounds present normoactive x-4 quadrants. Abdomen is soft, nondistended. no Epigastric tenderness. No guarding or rebound. No organomegaly noted, obese musculoskeletal: Spontaneously moving all extremities. 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 neuro ( as per neurology team) Sensorimotor examination: intact Motor examination - right side: 4/5: hip flexors, tibialis Anterior, quadriceps, toe extension (EHL), plantarflexion, 5/5: deltoids, biceps, triceps, wrist flexion, wrist extension, manager music Motor examination - left side: 5/5: deltoids, biceps, triceps, wrist flexion, wrist extension, hip flexors, manager music, quadriceps, tibialis Anterior, toe extension (EHL), plantarflexion Detailed sensory examination: intact, light touch Reflex and gait examination: intact Reflexes: Biceps: 2+, Triceps: 2+, Brachioradialis: 2+, Patella: 3+ (right), Achilles: 3+ (right) Mental Status Examination: awake, alert, oriented to person, oriented to place, oriented to time, follows commands appropriately, answers questions appropriately, no agnosia, no aphasia, no aproxia Cranial nerve examination: PERRL, EOMI, visual moreno intact, sensory to face intact, mastication intact, no facial asymmetry is present, no dysarthria, hearing is intact symmetrically, flexes SCM and trapezius muscles symmetrically with full power, tongue protrudes midline, no atrophy or facial fasiculations present Cerebellar examination: no dysmetria, performs finger to nose and heel to rodriguez symmetrically without ataxia, no gait ataxia, no truncal ataxia, no difficulty with rapid alternating movements - Assessment and Plan (1) Stroke Current Visit: Yes Status: Acute Assessment and Plan: acute infarct within the deep white matter of the right parietal lobe and within the left paracentral portion of the rosalio, moderate cerebral atrophy, and old lacune within the basal ganglia and rosalio with minimal residual weakness CT brain revealed no acute intracranial abnormality with white matter hypoattenuation and remote bilateral basal ganglia lacunar stroke. MRI brain revealed small acute infarct within the deep white matter of the right parietal lobe and within the left paracentral portion of the rosalio, moderate cerebral atrophy, and old lacune within the basal ganglia and rosalio. Echocardiogram revealed LVEF 65% with mild concentric LV hypertrophy. Carotid Doppler revealed nonstenotic plaque bilaterally Lipid panel reviewed. on Plavix as symptoms occurred on aspirin Started on Lipitor 80 Neuro checks as per protocol We will follow A1c 7.3 TSH 1.759- free t4 0.83 Neurology recommendations appreciated PT/OT - recommend Acute rehab- SW and CM on board cardiology consulted for Holter monitor- as per cardiology team they have reviewed telemetry and recommend OP follow up for holter monitor. (2) Diabetes mellitus Current Visit: Yes Status: Chronic Assessment and Plan: Continue home basal insulin dose [facility] AC/HS Diabetic diet A1c 7.3 was counseled (3) HTN (hypertension) Current Visit: Yes Status: Acute Assessment and Plan: On amlodipine 10 mg by mouth daily Started on Lasix 40 mg by mouth daily Lisinopril 40 mg daily Will consider adding another medication if BP remains uncontrolled Coreg on hold as he has bradycardia. (4) DVT prophylaxis Current Visit: Yes Status: Acute Assessment and Plan: Heparin subcutaneous - Time Spent with Patient Total time spent is greater than 50% in coordination of care (as documented) at patient's floor/unit and/or counseling patient: Internal Medicine: Result - Labs CBC & Chem 7: 06/25/18 04:27 06/25/18 04:27 - ABG Interpretation ABG results: PT/INR, D-dimer PT 12.4 Seconds (9.4-12.1) H 06/24/18 13:02 Consult Discharge Plan - Plan Referrals: Maria De Jesus Zhang MD [Primary Care Provider] - (1) Stroke Qualifiers: CVA mechanism: embolism Precerebral and cerebral artery: middle cerebral artery Laterality of affected vessel: bilateral Qualified Code(s): 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
[2018-06-28] MEDS: Ondansetron ODT 4 MG TAB.RAPDIS SL PRN (16:59)
[2018-06-28] MEDS: Insulin DETEMIR 100 UNIT/ML X5UNITS SQ SCH (21:02)
[2018-06-29] MEDS: *HR* Heparin 5,000 UNIT/ML VIAL SQ SCH ×2 (05:13→17:35)
[2018-06-29] MEDS: Insulin LISPRO 300 UNITS/3 ML VIAL SQ SCH ×4 (08:20→20:35)
[2018-06-29 08:28] LABS: BUN/Creatinine Ratio 20 (6-26); Blood Urea Nitrogen 20 mg/dL (8-23); Calcium 8.7 mg/dL (8.6-10.3); Carbon Dioxide 31 mEq/L (23-29); Chloride 104 mEq/L (98-107); Glucose 113 mg/dL (70-105); Osmolality,Calculated 291 (280-300); Potassium 3.9 mEq/L (3.5-5.1); Sodium 139 mEq/L (136-145); eGFR For Non-African Americans > 60 (> 60)
[2018-06-29] MEDS: Lisinopril 20 MG TABLET PO SCH (09:32)
[2018-06-29] MEDS: Furosemide 40 MG TABLET PO SCH (09:32)
[2018-06-29] MEDS: hydrALAZINE 25 MG TABLET PO SCH ×3 (09:32→23:57)
[2018-06-29] MEDS: amLODIPine 5 MG TABLET PO SCH (09:32)
--- NOTE | 2018-06-29 11:27 | Internal Med Progress Note ---
Hospitalist Progress Note - Encounter Date of Encounter: 06/29/18 Time of Encounter: 08:00 - Subjective Interval History: Patient was seen and examined at bedside, has no complaints, tolerating PO diet. Tolerating by mouth diet, nausea resolved. denies fever, chills, CP, SOB, loss of function in his extremities. - Exam Vitals: Temp Pulse Resp BP Pulse Ox 97.8 F 48 15 171/69 96 06/29/18 07:04 06/29/18 07:04 06/29/18 07:04 06/29/18 07:04 06/29/18 10:18 Exam: General: Patient is alert, oriented, no acute distress, overweight Head: atraumatic, normocephalic, Eye: normal appearance, PERRL, no scleral icterus, no conjunctival injection ENT: mucous membranes moist, normal external ear exam Neck: normal inspection, trachea midline, full ROM, no carotid bruits Chest: normal inspection, symmetric chest rise Respiratory: Good respiratory effort. Bilateral breath sounds are clear without wheezing, crackles, or rhonchi. Cardiovascular: bradycardic s1 and s2 No clicks, rubs, gallops, or murmors. Abdomen: Bowel sounds present normoactive x-4 quadrants. Abdomen is soft, nondistended. no Epigastric tenderness. No guarding or rebound. No organomegaly noted, obese musculoskeletal: Spontaneously moving all extremities. 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 neuro ( as per neurology team) Sensorimotor examination: intact Motor examination - right side: 4/5: hip flexors, tibialis Anterior, quadriceps, toe extension (EHL), plantarflexion, 5/5: deltoids, biceps, triceps, wrist flexion, wrist extension, head animal trainer Motor examination - left side: 5/5: deltoids, biceps, triceps, wrist flexion, wrist extension, hip flexors, head animal trainer, quadriceps, tibialis Anterior, toe extension (EHL), plantarflexion Detailed sensory examination: intact, light touch Reflex and gait examination: intact Reflexes: Biceps: 2+, Triceps: 2+, Brachioradialis: 2+, Patella: 3+ (right), Achilles: 3+ (right) Mental Status Examination: awake, alert, oriented to person, oriented to place, oriented to time, follows commands appropriately, answers questions appropriately, no agnosia, no aphasia, no aproxia Cranial nerve examination: PERRL, EOMI, visual moreno intact, sensory to face intact, mastication intact, no facial asymmetry is present, no dysarthria, hearing is intact symmetrically, flexes SCM and trapezius muscles symmetrically with full power, tongue protrudes midline, no atrophy or facial fasiculations present Cerebellar examination: no dysmetria, performs finger to nose and heel to rodriguez symmetrically without ataxia, no gait ataxia, no truncal ataxia, no difficulty with rapid alternating movements - Assessment and Plan (1) Stroke Current Visit: Yes Status: Acute Assessment and Plan: acute infarct within the deep white matter of the right parietal lobe and within the left paracentral portion of the rosalio, moderate cerebral atrophy, and old lacune within the basal ganglia and rosalio with minimal residual weakness CT brain revealed no acute intracranial abnormality with white matter hypoattenuation and remote bilateral basal ganglia lacunar stroke. MRI brain revealed small acute infarct within the deep white matter of the right parietal lobe and within the left paracentral portion of the rosalio, moderate cerebral atrophy, and old lacune within the basal ganglia and rosalio. Echocardiogram revealed LVEF 65% with mild concentric LV hypertrophy. Carotid Doppler revealed nonstenotic plaque bilaterally Lipid panel reviewed. on Plavix as symptoms occurred on aspirin Started on Lipitor 80 Neuro checks as per protocol We will follow A1c 7.3 TSH 1.759- free t4 0.83 Neurology recommendations appreciated PT/OT - recommend Acute rehab- SW and CM on board cardiology consulted for Holter monitor- as per cardiology team they have reviewed telemetry and recommend OP follow up for holter monitor. (2) Diabetes mellitus Current Visit: Yes Status: Chronic Assessment and Plan: Continue home basal insulin dose [facility] AC/HS Diabetic diet A1c 7.3 was counseled (3) HTN (hypertension) Current Visit: Yes Status: Acute Assessment and Plan: On amlodipine 10 mg by mouth daily Started on Lasix 40 mg by mouth daily Lisinopril 40 mg daily Hydralazine 25 mg 3 times a day Coreg on hold as he has bradycardia. (4) DVT prophylaxis Current Visit: Yes Status: Acute Assessment and Plan: Heparin subcutaneous - Time Spent with Patient Total time spent is greater than 50% in coordination of care (as documented) at patient's floor/unit and/or counseling patient: Internal Medicine: Result - Labs CBC & Chem 7: 06/25/18 04:27 06/29/18 07:49 Labs: BMP 06/29/18 07:49 Sodium 139 Potassium 3.9 Chloride 104 Carbon Dioxide 31 H BUN 20 Creatinine 0.98 Glucose 113 H Calcium 8.7 - ABG Interpretation ABG results: PT/INR, D-dimer PT 12.4 Seconds (9.4-12.1) H 06/24/18 13:02 Consult Discharge Plan - Plan Referrals: Maria De Jesus Zhang MD [Primary Care Provider] - (1) Stroke Qualifiers: CVA mechanism: embolism Precerebral and cerebral artery: middle cerebral artery Laterality of affected vessel: bilateral Qualified Code(s): 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
[2018-06-29] MEDS: Ondansetron ODT 4 MG TAB.RAPDIS SL PRN (12:45)
[2018-06-29] MEDS: Psyllium 1 PACKET POWD.PACK PO SCH ×2 (19:10→20:40)
[2018-06-29] MEDS: Insulin DETEMIR 100 UNIT/ML X5UNITS SQ SCH (20:34)
[2018-06-30] MEDS: *HR* Heparin 5,000 UNIT/ML VIAL SQ SCH ×2 (05:24→17:55)
[2018-06-30] MEDS: Insulin LISPRO 300 UNITS/3 ML VIAL SQ SCH ×4 (08:26→21:01)
[2018-06-30] MEDS: hydrALAZINE 25 MG TABLET PO SCH ×3 (08:26→21:00)
[2018-06-30] MEDS: Furosemide 40 MG TABLET PO SCH (08:26)
[2018-06-30] MEDS: amLODIPine 5 MG TABLET PO SCH (08:27)
[2018-06-30] MEDS: Lisinopril 20 MG TABLET PO SCH (08:27)
[2018-06-30] MEDS: Psyllium 1 PACKET POWD.PACK PO SCH ×3 (08:37→21:03)
--- NOTE | 2018-06-30 09:43 | Internal Med Progress Note ---
Hospitalist Progress Note - Encounter Date of Encounter: 06/30/18 Time of Encounter: 09:42 - Subjective Interval History: Patient was seen and examined at bedside, has no complaints, tolerating PO diet. Tolerating by mouth diet, nausea resolved. denies fever, chills, CP, SOB, loss of function in his extremities. - Exam Vitals: Temp Pulse Resp BP Pulse Ox 98.0 F 48 18 156/60 97 06/30/18 07:03 06/30/18 07:03 06/30/18 07:03 06/30/18 07:03 06/30/18 07:03 Exam: General: Patient is alert, oriented, no acute distress, overweight Head: atraumatic, normocephalic, Eye: normal appearance, PERRL, no scleral icterus, no conjunctival injection ENT: mucous membranes moist, normal external ear exam Neck: normal inspection, trachea midline, full ROM, no carotid bruits Chest: normal inspection, symmetric chest rise Respiratory: Good respiratory effort. Bilateral breath sounds are clear without wheezing, crackles, or rhonchi. Cardiovascular: bradycardic s1 and s2 No clicks, rubs, gallops, or murmors. Abdomen: Bowel sounds present normoactive x-4 quadrants. Abdomen is soft, nondistended. no Epigastric tenderness. No guarding or rebound. No organomegaly noted, obese musculoskeletal: Spontaneously moving all extremities. 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 neuro ( as per neurology team) Sensorimotor examination: intact Motor examination - right side: 4/5: hip flexors, tibialis Anterior, quadriceps, toe extension (EHL), plantarflexion, 5/5: deltoids, biceps, triceps, wrist flexion, wrist extension, inspector wire products Motor examination - left side: 5/5: deltoids, biceps, triceps, wrist flexion, wrist extension, hip flexors, inspector wire products, quadriceps, tibialis Anterior, toe extension (EHL), plantarflexion Detailed sensory examination: intact, light touch Reflex and gait examination: intact Reflexes: Biceps: 2+, Triceps: 2+, Brachioradialis: 2+, Patella: 3+ (right), Achilles: 3+ (right) Mental Status Examination: awake, alert, oriented to person, oriented to place, oriented to time, follows commands appropriately, answers questions appropriately, no agnosia, no aphasia, no aproxia Cranial nerve examination: PERRL, EOMI, visual moreno intact, sensory to face intact, mastication intact, no facial asymmetry is present, no dysarthria, hearing is intact symmetrically, flexes SCM and trapezius muscles symmetrically with full power, tongue protrudes midline, no atrophy or facial fasiculations present Cerebellar examination: no dysmetria, performs finger to nose and heel to rodriguez symmetrically without ataxia, no gait ataxia, no truncal ataxia, no difficulty with rapid alternating movements - Assessment and Plan (1) Stroke Current Visit: Yes Status: Acute Assessment and Plan: acute infarct within the deep white matter of the right parietal lobe and within the left paracentral portion of the rosalio, moderate cerebral atrophy, and old lacune within the basal ganglia and rosalio with minimal residual weakness CT brain revealed no acute intracranial abnormality with white matter hypoattenuation and remote bilateral basal ganglia lacunar stroke. MRI brain revealed small acute infarct within the deep white matter of the right parietal lobe and within the left paracentral portion of the rosalio, moderate cerebral atrophy, and old lacune within the basal ganglia and rosalio. Echocardiogram revealed LVEF 65% with mild concentric LV hypertrophy. Carotid Doppler revealed nonstenotic plaque bilaterally Lipid panel reviewed. on Plavix as symptoms occurred on aspirin Started on Lipitor 80 Neuro checks as per protocol We will follow A1c 7.3 TSH 1.759- free t4 0.83 Neurology recommendations appreciated PT/OT - recommend Acute rehab- SW and CM on board cardiology consulted for Holter monitor- as per cardiology team they have reviewed telemetry and recommend OP follow up for holter monitor. (2) Diabetes mellitus Current Visit: Yes Status: Chronic Assessment and Plan: Continue home basal insulin dose [facility] AC/HS Diabetic diet A1c 7.3 was counseled (3) HTN (hypertension) Current Visit: Yes Status: Acute Assessment and Plan: On amlodipine 10 mg by mouth daily Started on Lasix 40 mg by mouth daily Lisinopril 40 mg daily Hydralazine increased to 50 mg BID Coreg on hold as he has bradycardia. (4) DVT prophylaxis Current Visit: Yes Status: Acute Assessment and Plan: Heparin subcutaneous - Time Spent with Patient Total time spent is greater than 50% in coordination of care (as documented) at patient's floor/unit and/or counseling patient: Internal Medicine: Result - Labs CBC & Chem 7: 06/25/18 04:27 06/29/18 07:49 - ABG Interpretation ABG results: PT/INR, D-dimer PT 12.4 Seconds (9.4-12.1) H 06/24/18 13:02 Consult Discharge Plan - Plan Referrals: Maria De Jesus Zhang MD [Primary Care Provider] - (1) Stroke Qualifiers: CVA mechanism: embolism Precerebral and cerebral artery: middle cerebral artery Laterality of affected vessel: bilateral Qualified Code(s): 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
[2018-06-30] MEDS: Insulin DETEMIR 100 UNIT/ML X5UNITS SQ SCH (21:00)
[2018-07-01] MEDS: *HR* Heparin 5,000 UNIT/ML VIAL SQ SCH (06:17)
[2018-07-01] MEDS: Furosemide 40 MG TABLET PO SCH (09:03)
[2018-07-01] MEDS: amLODIPine 5 MG TABLET PO SCH (09:03)
[2018-07-01] MEDS: Psyllium 1 PACKET POWD.PACK PO SCH (09:04)
[2018-07-01] MEDS: Lisinopril 20 MG TABLET PO SCH (09:04)
[2018-07-01] MEDS: hydrALAZINE 25 MG TABLET PO SCH (09:04)
[2018-07-01] MEDS: Insulin LISPRO 300 UNITS/3 ML VIAL SQ SCH (09:05)
--- NOTE | 2018-07-01 09:51 | Discharge Summary ---
- NOTES TO OUTPATIENT PROVIDER Notes to Outpatient Provider: follow BP and adjust medications accordingly. needs OP follow up with cardiology for holter monitor placement. follow A1c was 7.3 on 06/26. 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 (2) Diabetes mellitus Priority: Secondary Status: Chronic Qualifiers: Diabetes mellitus type: type 2 Diabetes mellitus terminal computer operator insulin use: with terminal computer operator use Diabetes mellitus complication status: without complication Qualified Code(s): E11.9 - Type 2 diabetes mellitus without complications; Z79.4 - [facility] (current) use of insulin (3) HTN (hypertension) Priority: Secondary Status: Acute Qualifiers: Hypertension type: essential hypertension Qualified Code(s): I10 - Essential (primary) hypertension (4) DVT prophylaxis Priority: Secondary Status: Acute Hospital course: Mr. Jiang is a 77 year old male PMH of DM and HTN. He denies any prior history of CVA or TIA. He denies any history of A. fib. He presents to [facility] today with a chief complaint of right lower extremity weakness. Neuro imaging in the ED includes a CT of the head which was without acute intracranial abnormality. MRI brain revealed a small acute infarct within the deep white matter of the right parietal lobe and within the left paracentral portion of the rosalio. There is an old lacune withing the basal ganglia and mild chronic small vessel ischemic disease in th periventricular white matter of both cerebral hemispheres. He was admitted for further workup of acute CVA. Neurology was consulted and aspirin was changed to Plavix as symptoms started while patient was on aspirin at home. He was started on high intensity statin. A1c was 7.3 and he was counseled on importance of compliance with his insulin. Blood pressure remained elevated throughout admission and medications were adjusted with better control of the blood pressure. He remained bradycardic so beta blockers were discontinued. cardiology consulted for Holter monitor- as per cardiology team they have reviewed telemetry and recommend OP follow up for holter monitor. CT brain revealed no acute intracranial abnormality with white matter hypoattenuation and remote bilateral basal ganglia lacunar stroke. MRI brain revealed small acute infarct within the deep white matter of the right parietal lobe and within the left paracentral portion of the rosalio, moderate cerebral atrophy, and old lacune within the basal ganglia and rosalio. Echocardiogram revealed LVEF 65% with mild concentric LV hypertrophy. Carotid Doppler revealed nonstenotic plaque bilaterally PT and OT were consulted and recommended acute rehabilitation. patient registration manager and psychosocial rehabilitation counselor facilitated acceptance at acute rehabilitation at the [facility]. Per PCP to follow BMP for electrolytes and renal function. To follow A1c in 3 months and adjust insulin as per fingersticks. Follow BP and adjust medications. Discharge discussed with: patient, family, nurse, social work, case management, speech correction consultant Time spent discussing smoking cessation with patient: more than 10 minutes - Time Spent with Patient Total time spent providing and/or coordinating discharge services: Greater than 30 minutes (45) - Discharge Medications Prescriptions: Amlodipine Besylate 10 mg PO DAILY #30 tablet Atorvastatin [Lipitor] 80 mg PO HS 30 Days #60 tablet Clopidogrel [Plavix] 75 mg PO DAILY #30 tablet Furosemide [Lasix] 40 mg PO DAILY #30 tablet hydrALAZINE [HydrALAZINE] 50 mg PO Q12H 30 Days #120 tablet Lisinopril [Zestril] 40 mg PO DAILY #60 tablet Home Medications: Calcium Carbonate [Calcium] 500 mg PO 06/25/18 [History] Cholecalciferol (D-3) [Vitamin D] 1,000 unit PO DAILY 06/25/18 [History] Insulin ASPART [Novolog Flexpen] 10 unit SQ TIDAC 06/25/18 [History] Insulin Glargine,Hum.rec.anlog [Lantus Solostar] 33 unit SQ DAILY 06/25/18 [History] Pantoprazole Sodium [Protonix] 40 mg PO DAILY 06/25/18 [History] Sertraline [Zoloft] 25 mg PO DAILY 06/25/18 [History] Tamsulosin HCl [Flomax] 0.4 mg PO DAILY 06/25/18 [History] Amlodipine Besylate 10 mg PO DAILY #30 tablet 07/01/18 [Rx] Atorvastatin [Lipitor] 80 mg PO HS 30 Days #60 tablet 07/01/18 [Rx] Clopidogrel [Plavix] 75 mg PO DAILY #30 tablet 07/01/18 [Rx] Furosemide [Lasix] 40 mg PO DAILY #30 tablet 07/01/18 [Rx] Lisinopril [Zestril] 40 mg PO DAILY #60 tablet 07/01/18 [Rx] hydrALAZINE [HydrALAZINE] 50 mg PO Q12H 30 Days #120 tablet 07/01/18 [Rx] Allergies/Adverse Reactions: Allergy/AdvReac Type Severity Reaction Status Date / Time No Known Allergies Allergy Verified 06/24/18 11:19 Date of admission: 06/24/18 17:18 Primary care physician: Maria De Jesus Zhang MD Consults: 06/24/18 16:37 Consult to Neurology [CONS] Stat Consulting Provider: Neurology [facility] Reason for Consult: CVA Time Notified: 16:43 Call Completed: Yes Consult to Occupational Therapy [CONS] Stat Comment: Evaluate, develop and implement POC Reason for Consult: cva, assess for deficits prior to d/c Does patient have active BEDREST order?: No Is patient medically & hemodynamically stable?: Yes Patient assessed for mobility or mobilized this visit?: Yes Consult to Physical Therapy [CONS] Stat Comment: Evaluate, develop and implement POC Reason for Consult: cva, assess for d/c needs Does patient have active BEDREST order?: No Is patient medically & hemodynamically stable?: Yes Patient assessed for mobility or mobilized this visit?: Yes 06/29/18 19:08 Consult to Washer Machine [CONS] Routine Reason for SW Consult: patient is going to [facility] for rehab after stroke - Constitutional Vitals: Temp Pulse Resp BP Pulse Ox 97.9 F 53 16 146/52 96 07/01/18 06:50 07/01/18 06:50 07/01/18 06:50 07/01/18 06:50 07/01/18 06:50 General appearance: Present: A&O X 3 Exam: General: Patient is alert, oriented, no acute distress, overweight Head: atraumatic, normocephalic, Eye: normal appearance, PERRL, no scleral icterus, no conjunctival injection ENT: mucous membranes moist, normal external ear exam Neck: normal inspection, trachea midline, full ROM, no carotid bruits Chest: normal inspection, symmetric chest rise Respiratory: Good respiratory effort. Bilateral breath sounds are clear without wheezing, crackles, or rhonchi. Cardiovascular: bradycardic s1 and s2 No clicks, rubs, gallops, or murmors. Abdomen: Bowel sounds present normoactive x-4 quadrants. Abdomen is soft, nondistended. no Epigastric tenderness. No guarding or rebound. No organomegaly noted, obese musculoskeletal: Spontaneously moving all extremities. 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 neuro ( as per neurology team) Sensorimotor examination: intact Motor examination - right side: 4/5: hip flexors, tibialis Anterior, quadriceps, toe extension (EHL), plantarflexion, 5/5: deltoids, biceps, triceps, wrist flexion, wrist extension, community health educator Motor examination - left side: 5/5: deltoids, biceps, triceps, wrist flexion, wrist extension, hip flexors, community health educator, quadriceps, tibialis Anterior, toe extension (EHL), plantarflexion Detailed sensory examination: intact, light touch Reflex and gait examination: intact Reflexes: Biceps: 2+, Triceps: 2+, Brachioradialis: 2+, Patella: 3+ (right), Achilles: 3+ (right) Mental Status Examination: awake, alert, oriented to person, oriented to place, oriented to time, follows commands appropriately, answers questions appropriately, no agnosia, no aphasia, no aproxia Cranial nerve examination: PERRL, EOMI, visual moreno intact, sensory to face intact, mastication intact, no facial asymmetry is present, no dysarthria, hearing is intact symmetrically, flexes SCM and trapezius muscles symmetrically with full power, tongue protrudes midline, no atrophy or facial fasiculations present Cerebellar examination: no dysmetria, performs finger to nose and heel to rodriguez symmetrically without ataxia, no gait ataxia, no truncal ataxia, no difficulty with rapid alternating movements - Patient Status Disposition: Transfer Inpatient Rehab Fac Condition: Good Functional capacity at discharge: independent ambulation Overall status at discharge: patient is progressing back to baseline - Discharge Instructions Follow Up With: Maria De Jesus Zhang MD [Primary Care Provider] - - Diet and Activity Activity: as per physical therapy Diet: diabetic diet, low salt diet
--- NOTE | 2018-07-01 10:02 | Physician Discharge Referral ---
ExtendedCare Referral Info Transfer To: [facility] acute [facility] Provider in Charge after Transfer: PCP Institutional Level of Care: Skilled - Diagnosis (1) Stroke Priority: Primary Status: Acute (2) Diabetes mellitus Priority: Secondary Status: Chronic (3) HTN (hypertension) Priority: Secondary Status: Acute (4) DVT prophylaxis Priority: Secondary Status: Acute Prognosis: Good Aware of Diagnosis: Patient Aware of Prognosis: Patient - Transfer Medications Prescriptions: Amlodipine Besylate 10 mg PO DAILY #30 tablet Atorvastatin [Lipitor] 80 mg PO HS 30 Days #60 tablet Clopidogrel [Plavix] 75 mg PO DAILY #30 tablet Furosemide [Lasix] 40 mg PO DAILY #30 tablet hydrALAZINE [HydrALAZINE] 50 mg PO Q12H 30 Days #120 tablet Lisinopril [Zestril] 40 mg PO DAILY #60 tablet Home Medications: Calcium Carbonate [Calcium] 500 mg PO 06/25/18 [History] Cholecalciferol (D-3) [Vitamin D] 1,000 unit PO DAILY 06/25/18 [History] Insulin ASPART [Novolog Flexpen] 10 unit SQ TIDAC 06/25/18 [History] Insulin Glargine,Hum.rec.anlog [Lantus Solostar] 33 unit SQ DAILY 06/25/18 [His tory] Pantoprazole Sodium [Protonix] 40 mg PO DAILY 06/25/18 [History] Sertraline [Zoloft] 25 mg PO DAILY 06/25/18 [History] Tamsulosin HCl [Flomax] 0.4 mg PO DAILY 06/25/18 [History] Amlodipine Besylate 10 mg PO DAILY #30 tablet 07/01/18 [Rx] Atorvastatin [Lipitor] 80 mg PO HS 30 Days #60 tablet 07/01/18 [Rx] Clopidogrel [Plavix] 75 mg PO DAILY #30 tablet 07/01/18 [Rx] Furosemide [Lasix] 40 mg PO DAILY #30 tablet 07/01/18 [Rx] Lisinopril [Zestril] 40 mg PO DAILY #60 tablet 07/01/18 [Rx] hydrALAZINE [HydrALAZINE] 50 mg PO Q12H 30 Days #120 tablet 07/01/18 [Rx] Allergies/Adverse Reactions: Allergy/AdvReac Type Severity Reaction Status Date / Time No Known Allergies Allergy Verified 06/24/18 11:19 - Respiratory Orders Smoking Cessation: Smoking cessation has been advised. For more information, call the [place] Tobacco Quit Line at 6-025-TOHR-NOW. - Lab Orders Lab Orders: Other (include drug levels w/frequency) (bmp for electrolytes and renal function) - Rehabiliation Orders Rehab Orders: Sternal Precautions, ROM Exercises, Evaluation for Physical Therapy, Evaluation for Occupational Therapy - Treatments Skin tear care topically daily PRN per policy, May check for fecal impaction rectally daily PRN - Diet Orders Cardiac (diabetic) CERTIFICATION: I certify that the transfer of the above named patient to an Extended Care Facility is necessary for the continuing treatment of the diagnosis listed. The above information is true and accurate reflection of patient's current condition. Confidential - Redisclosure prohibited without a patient's written consent.
[2018-07-01 12:11] VITALS: BP 145/62
[2018-07-01] MEDS: Ondansetron ODT 4 MG TAB.RAPDIS SL PRN (12:13)
== END 2018-07-01 13:11 | DRG 66 ==
LOC: EMEROOARM 11:15 → SUATTDRO 17:18 → 2NENU 17:18
PROVIDERS: ADMIT Internal Medicine; ATTEND Internal Medicine

== ENCOUNTER 2020-03-11 22:28 | Observation (INO) ==
[2020-03-11 23:43] LABS: Basophils % 0.6 %; Eosinophils # 0.1 K/mcL (0.0-0.6); Eosinophils % 1.7 %; Immature Granulocytes % 0.3 % (0-4); Immature Platelets 4.6 % (1.1-6.1); Lymphocytes # 1.2 K/mcL (0.6-4.6); Lymphocytes % 19.4 %; Mean Corpuscular HGB Conc 34.1 g/dL (31.6-35.5); Mean Corpuscular Hemoglobin 30.9 pg (28.0-33.3); Mean Corpuscular Volume 90.7 fL (83.0-100.0); Mean Platelet Volume 10.8 fL (9.4-12.4); Monocytes # 0.5 K/mcL (0.0-1.3); Monocytes % 7.1 %; Neutrophils # 4.5 K/mcL (1.6-8.9); Platelet Count 115 K/mcL (140-400); Red Blood Count 4.85 M/mcL (4.19-5.50); Red Cell Distribution Width 12.3 % (11.5-14.5); Segmented Neutrophils % 70.9 %; White Blood Count 6.3 K/mcL (4.3-11.1)
[2020-03-11 23:48] LABS: INR 1.1; Prothrombin Time 12.3 Seconds (9.4-12.1)
[2020-03-12 00:06] LABS: Troponin I < 0.03 ng/mL (< 0.04)
[2020-03-12 00:27] LABS: BUN/Creatinine Ratio 13 (6-26); Blood Urea Nitrogen 19 mg/dL (8-23); Calcium 8.3 mg/dL (8.6-10.3); Carbon Dioxide 24 mEq/L (23-29); Chloride 99 mEq/L (98-107); Glucose 210 mg/dL (70-105); Osmolality,Calculated 282 (280-300); Potassium 4.7 mEq/L (3.5-5.1); Sodium 132 mEq/L (136-145); eGFR For African Americans 58 (> 60); eGFR For Non-African Americans 48 (> 60)
[2020-03-12 00:37] LABS: Bilirubin,Urine Negative (Negative); Blood,Urine Negative (Negative); Clarity,Urine Clear (Clear); Color,Urine Light-Yellow (Yellow); Glucose,Urine (UA) Normal (Normal); Ketones,Urine Negative (Negative); Leukocyte Esterase,Urine Negative (Negative); Nitrite,Urine Negative (Negative); Protein,Urine Negative (Neg-Trace); Specific Gravity,Urine 1.016 (1.010-1.025); Urobilinogen,Urine Normal (Normal)
[2020-03-12] MEDS ORDERED: 0.9 % Sodium Chloride 1,000 ML IVC ONE (01:28)
[2020-03-12] MEDS ORDERED: Naloxone 0.4 MG/ML INJ IVP PRN (03:50)
[2020-03-12] MEDS ORDERED: *HR* Promethazine 25 MG/ML VIAL IVP PRN (03:50)
[2020-03-12] MEDS ORDERED: *HR* Dextrose 50 % in Water (Vial) 50 ML VIAL IVP PRN (03:53)
[2020-03-12] MEDS ORDERED: D5% in Water 1,000 ML IVC PRN (03:53)
[2020-03-12] MEDS ORDERED: Dextrose Gel 15 GM/37.5 ML TUBE PO PRN ×2 (03:53)
[2020-03-12] MEDS ORDERED: Insulin LISPRO 300 UNITS/3 ML VIAL SQ SCH (04:00)
[2020-03-12] MEDS: 0.9 % Sodium Chloride 1,000 ML IVC SCH ×2 (04:42→15:25)
[2020-03-12] MEDS: *HR* HYDROmorphone (PF) 1 MG/ML SYRINGE IVP PRN (05:02)
[2020-03-12] MEDS: Insulin LISPRO 300 UNITS/3 ML VIAL SQ SCH ×5 (05:07→21:45)
[2020-03-12] MEDS: Nystatin POWDER 30 GM BOTTLE TP SCH ×4 (06:31→21:46)
[2020-03-12 07:36] LABS: Basophils % 0.5 %; Hematocrit 40.3 % (37.5-50.1); Hemoglobin 13.7 g/dL (12.9-16.9); Red Cell Distribution Width 12.2 % (11.5-14.5)
[2020-03-12 07:37] LABS: Eosinophils # 0.1 K/mcL (0.0-0.6); Eosinophils % 1.9 %; Immature Granulocytes % 0.2 % (0-4); Immature Platelets 4.4 % (1.1-6.1); Lymphocytes % 25.4 %; Mean Corpuscular Hemoglobin 31.1 pg (28.0-33.3); Mean Corpuscular Volume 91.4 fL (83.0-100.0); Mean Platelet Volume 10.6 fL (9.4-12.4); Monocytes # 0.6 K/mcL (0.0-1.3); Monocytes % 9.5 %; Platelet Count 119 K/mcL (140-400); Red Blood Count 4.41 M/mcL (4.19-5.50); Segmented Neutrophils % 62.5 %; White Blood Count 6.5 K/mcL (4.3-11.1)
[2020-03-12 07:41] LABS: INR 1.1; Prothrombin Time 12.7 Seconds (9.4-12.1)
[2020-03-12 07:58] LABS: Alanine Aminotransferase 13 Units/L (7-52); Albumin 3.3 g/dL (3.5-5.7); Albumin/Globulin Ratio 1.5 (1.1-2.2); Alkaline Phosphatase 74 Units/L (34-104); Aspartate Amino Transferase 15 Units/L (13-39); BUN/Creatinine Ratio 16 (6-26); Bilirubin,Total 0.4 mg/dL (0.3-1.0); Blood Urea Nitrogen 18 mg/dL (8-23); Calcium 8.2 mg/dL (8.6-10.3); Carbon Dioxide 25 mEq/L (23-29); Chloride 99 mEq/L (98-107); Globulin 2.2 g/dL (2.4-3.5); Glucose 187 mg/dL (70-105); Magnesium 1.8 mg/dL (1.6-2.6); Osmolality,Calculated 279 (280-300); Phosphorous 2.8 mg/dL (2.7-4.5); Potassium 3.8 mEq/L (3.5-5.1); Sodium 131 mEq/L (136-145); Total Protein 5.5 g/dL (6.4-8.9); eGFR For African Americans > 60 (> 60); eGFR For Non-African Americans > 60 (> 60)
[2020-03-12 08:07] LABS: Lymphocytes # 1.7 K/mcL (0.6-4.6); Neutrophils # 4.1 K/mcL (1.6-8.9)
[2020-03-12 08:08] LABS: Thyroid Stimulating Hormone 2.247 mcIU/mL (0.340-5.600)
[2020-03-12] MEDS ORDERED: Insulin DETEMIR 100 UNIT/ML X5UNITS SQ SCH (09:00)
[2020-03-12] MEDS: Cholecalciferol (D-3) 1,000 UNIT (25MCG) TABLET PO SCH (10:16)
[2020-03-12] MEDS: amLODIPine 5 MG TABLET PO SCH (10:17)
[2020-03-12 14:42] LABS: Estimated Average Glucose 160 mg/dl
[2020-03-12] MEDS: Insulin DETEMIR 100 UNIT/ML X5UNITS SQ SCH (21:45)
[2020-03-12] MEDS: carvediloL 25 MG TABLET PO SCH (21:45)
[2020-03-12] MEDS: (Colestipol Hcl [Colestid] 1 GM) PO SCH (21:47)
[2020-03-12] MEDS: lisinopriL 20 MG TABLET PO SCH (21:47)
[2020-03-13] MEDS: Insulin LISPRO 300 UNITS/3 ML VIAL SQ SCH ×4 (07:52→20:59)
[2020-03-13] MEDS: lisinopriL 20 MG TABLET PO SCH ×2 (07:55→21:02)
[2020-03-13] MEDS: amLODIPine 5 MG TABLET PO SCH (07:55)
[2020-03-13] MEDS: Cholecalciferol (D-3) 1,000 UNIT (25MCG) TABLET PO SCH (07:55)
[2020-03-13] MEDS: (Colestipol Hcl [Colestid] 1 GM) PO SCH ×2 (07:56→21:27)
[2020-03-13] MEDS: carvediloL 25 MG TABLET PO SCH ×2 (07:56→20:59)
[2020-03-13] MEDS: Nystatin POWDER 30 GM BOTTLE TP SCH ×3 (08:08→21:03)
[2020-03-13 10:40] LABS: Basophils % 0.6 %; Hematocrit 42.9 % (37.5-50.1); Mean Corpuscular Volume 92.3 fL (83.0-100.0); Red Blood Count 4.65 M/mcL (4.19-5.50); Red Cell Distribution Width 12.5 % (11.5-14.5)
[2020-03-13 10:42] LABS: Eosinophils # 0.1 K/mcL (0.0-0.6); Eosinophils % 1.6 %; Hemoglobin 14.6 g/dL (12.9-16.9); Immature Granulocytes % 0.4 % (0-4); Immature Platelets 2.8 % (1.1-6.1); Lymphocytes # 1.6 K/mcL (0.6-4.6); Lymphocytes % 23.3 %; Mean Corpuscular Hemoglobin 31.4 pg (28.0-33.3); Mean Platelet Volume 10.2 fL (9.4-12.4); Monocytes # 0.7 K/mcL (0.0-1.3); Platelet Count 123 K/mcL (140-400); Segmented Neutrophils % 64.1 %; White Blood Count 6.8 K/mcL (4.3-11.1)
[2020-03-13 10:43] LABS: Neutrophils # 4.4 K/mcL (1.6-8.9)
[2020-03-13 11:00] LABS: BUN/Creatinine Ratio 13 (6-26); Blood Urea Nitrogen 12 mg/dL (8-23); Calcium 8.2 mg/dL (8.6-10.3); Carbon Dioxide 25 mEq/L (23-29); Chloride 105 mEq/L (98-107); Glucose 81 mg/dL (70-105); Magnesium 1.6 mg/dL (1.6-2.6); Osmolality,Calculated 281 (280-300); Potassium 3.7 mEq/L (3.5-5.1); Sodium 136 mEq/L (136-145); eGFR For African Americans > 60 (> 60); eGFR For Non-African Americans > 60 (> 60)
[2020-03-13] MEDS: *HR* HYDROmorphone (PF) 1 MG/ML SYRINGE IVP PRN (11:07)
[2020-03-13] MEDS: *HR* Heparin 5,000 UNIT/ML VIAL SQ SCH (18:20)
[2020-03-13] MEDS: Insulin DETEMIR 100 UNIT/ML X5UNITS SQ SCH (21:21)
[2020-03-14] MEDS: *HR* Heparin 5,000 UNIT/ML VIAL SQ SCH ×2 (05:39→19:22)
[2020-03-14 06:01] LABS: Basophils % 0.4 %; Immature Granulocytes % 0.1 % (0-4); Mean Corpuscular HGB Conc 33.2 g/dL (31.6-35.5); Red Cell Distribution Width 12.5 % (11.5-14.5)
[2020-03-14 06:03] LABS: Eosinophils # 0.1 K/mcL (0.0-0.6); Eosinophils % 1.2 %; Hematocrit 44.6 % (37.5-50.1); Hemoglobin 14.8 g/dL (12.9-16.9); Immature Platelets 3.6 % (1.1-6.1); Lymphocytes # 1.6 K/mcL (0.6-4.6); Lymphocytes % 21.2 %; Mean Corpuscular Hemoglobin 30.5 pg (28.0-33.3); Mean Corpuscular Volume 91.8 fL (83.0-100.0); Mean Platelet Volume 10.3 fL (9.4-12.4); Monocytes # 0.8 K/mcL (0.0-1.3); Monocytes % 10.6 %; Neutrophils # 4.9 K/mcL (1.6-8.9); Platelet Count 125 K/mcL (140-400); Red Blood Count 4.86 M/mcL (4.19-5.50); Segmented Neutrophils % 66.5 %; White Blood Count 7.4 K/mcL (4.3-11.1)
[2020-03-14 06:19] LABS: Platelet Estimate Slight Decrease (Normal)
[2020-03-14 06:21] LABS: BUN/Creatinine Ratio 12 (6-26); Blood Urea Nitrogen 11 mg/dL (8-23); Calcium 8.7 mg/dL (8.6-10.3); Carbon Dioxide 29 mEq/L (23-29); Chloride 103 mEq/L (98-107); Glucose 89 mg/dL (70-105); Magnesium 1.7 mg/dL (1.6-2.6); Osmolality,Calculated 283 (280-300); Phosphorous 3.4 mg/dL (2.7-4.5); Potassium 3.7 mEq/L (3.5-5.1); Sodium 137 mEq/L (136-145); eGFR For African Americans > 60 (> 60); eGFR For Non-African Americans > 60 (> 60)
[2020-03-14] MEDS: Insulin LISPRO 300 UNITS/3 ML VIAL SQ SCH ×4 (07:33→21:01)
[2020-03-14] MEDS: (Colestipol Hcl [Colestid] 1 GM) PO SCH ×2 (09:08→21:01)
[2020-03-14] MEDS: carvediloL 25 MG TABLET PO SCH ×2 (09:10→21:03)
[2020-03-14] MEDS: Nystatin POWDER 30 GM BOTTLE TP SCH ×3 (09:14→21:02)
[2020-03-14] MEDS: Cholecalciferol (D-3) 1,000 UNIT (25MCG) TABLET PO SCH (09:14)
[2020-03-14] MEDS: lisinopriL 20 MG TABLET PO SCH ×2 (09:14→21:00)
[2020-03-14] MEDS: amLODIPine 5 MG TABLET PO SCH (09:14)
[2020-03-14] MEDS ORDERED: Insulin DETEMIR 100 UNIT/ML X5UNITS SQ SCH (21:00)
[2020-03-15 05:11] LABS: Basophils % 0.4 %; Eosinophils # 0.2 K/mcL (0.0-0.6); Eosinophils % 2.2 %; Hematocrit 44.5 % (37.5-50.1); Immature Granulocytes % 0.3 % (0-4); Immature Platelets 2.5 % (1.1-6.1); Lymphocytes # 1.5 K/mcL (0.6-4.6); Lymphocytes % 21.1 %; Mean Corpuscular HGB Conc 33.7 g/dL (31.6-35.5); Mean Corpuscular Hemoglobin 31.3 pg (28.0-33.3); Mean Corpuscular Volume 92.7 fL (83.0-100.0); Mean Platelet Volume 10.1 fL (9.4-12.4); Monocytes # 0.7 K/mcL (0.0-1.3); Monocytes % 10.7 %; Neutrophils # 4.5 K/mcL (1.6-8.9); Platelet Count 131 K/mcL (140-400); Red Cell Distribution Width 12.3 % (11.5-14.5); Segmented Neutrophils % 65.3 %; White Blood Count 6.9 K/mcL (4.3-11.1)
[2020-03-15] MEDS: *HR* Heparin 5,000 UNIT/ML VIAL SQ SCH ×2 (05:20→16:29)
[2020-03-15 05:23] LABS: BUN/Creatinine Ratio 17 (6-26); Blood Urea Nitrogen 13 mg/dL (8-23); Calcium 8.2 mg/dL (8.6-10.3); Carbon Dioxide 23 mEq/L (23-29); Chloride 104 mEq/L (98-107); Glucose 101 mg/dL (70-105); Magnesium 1.7 mg/dL (1.6-2.6); Osmolality,Calculated 280 (280-300); Phosphorous 3.2 mg/dL (2.7-4.5); Potassium 3.7 mEq/L (3.5-5.1); Sodium 135 mEq/L (136-145); eGFR For African Americans > 60 (> 60); eGFR For Non-African Americans > 60 (> 60)
[2020-03-15] MEDS: Insulin LISPRO 300 UNITS/3 ML VIAL SQ SCH ×4 (08:37→20:19)
[2020-03-15] MEDS: amLODIPine 5 MG TABLET PO SCH (08:44)
[2020-03-15] MEDS: carvediloL 25 MG TABLET PO SCH ×2 (08:44→20:19)
[2020-03-15] MEDS: Cholecalciferol (D-3) 1,000 UNIT (25MCG) TABLET PO SCH (08:44)
[2020-03-15] MEDS: Acetaminophen 325 MG TABLET PO PRN ×2 (08:45→16:28)
[2020-03-15] MEDS: lisinopriL 20 MG TABLET PO SCH ×2 (08:45→20:29)
[2020-03-15] MEDS: Nystatin POWDER 30 GM BOTTLE TP SCH ×3 (08:47→20:29)
[2020-03-15] MEDS: (Colestipol Hcl [Colestid] 1 GM) PO SCH ×2 (08:48→20:30)
[2020-03-15] MEDS ORDERED: Insulin DETEMIR 100 UNIT/ML X5UNITS SQ SCH (21:00)
[2020-03-16 02:10] LABS: Red Cell Distribution Width 12.4 % (11.5-14.5)
[2020-03-16 02:12] LABS: Basophils # 0.1 K/mcL (0.0-0.2); Basophils % 0.8 %; Eosinophils # 0.3 K/mcL (0.0-0.6); Eosinophils % 4.4 %; Hematocrit 41.9 % (37.5-50.1); Immature Granulocytes % 0.3 % (0-4); Lymphocytes # 1.7 K/mcL (0.6-4.6); Lymphocytes % 29.2 %; Mean Corpuscular HGB Conc 33.4 g/dL (31.6-35.5); Mean Corpuscular Hemoglobin 30.3 pg (28.0-33.3); Mean Corpuscular Volume 90.7 fL (83.0-100.0); Mean Platelet Volume 10.2 fL (9.4-12.4); Monocytes # 0.6 K/mcL (0.0-1.3); Monocytes % 9.9 %; Neutrophils # 3.3 K/mcL (1.6-8.9); Platelet Count 122 K/mcL (140-400); Red Blood Count 4.62 M/mcL (4.19-5.50); Segmented Neutrophils % 55.4 %; White Blood Count 5.9 K/mcL (4.3-11.1)
[2020-03-16 02:34] LABS: BUN/Creatinine Ratio 21 (6-26); Blood Urea Nitrogen 19 mg/dL (8-23); Calcium 8.4 mg/dL (8.6-10.3); Carbon Dioxide 27 mEq/L (23-29); Chloride 101 mEq/L (98-107); Glucose 102 mg/dL (70-105); Magnesium 1.9 mg/dL (1.6-2.6); Osmolality,Calculated 280 (280-300); Phosphorous 3.7 mg/dL (2.7-4.5); Potassium 3.6 mEq/L (3.5-5.1); Sodium 134 mEq/L (136-145); eGFR For African Americans > 60 (> 60); eGFR For Non-African Americans > 60 (> 60)
[2020-03-16] MEDS: *HR* Heparin 5,000 UNIT/ML VIAL SQ SCH (05:46)
[2020-03-16 07:23] VITALS: BP 139/76
[2020-03-16] MEDS: Insulin LISPRO 300 UNITS/3 ML VIAL SQ SCH ×2 (08:44→11:58)
[2020-03-16] MEDS: amLODIPine 5 MG TABLET PO SCH (08:53)
[2020-03-16] MEDS: lisinopriL 20 MG TABLET PO SCH (08:53)
[2020-03-16] MEDS: (Colestipol Hcl [Colestid] 1 GM) PO SCH (08:54)
[2020-03-16] MEDS: Nystatin POWDER 30 GM BOTTLE TP SCH ×2 (08:54→17:43)
[2020-03-16] MEDS: Cholecalciferol (D-3) 1,000 UNIT (25MCG) TABLET PO SCH (08:54)
[2020-03-16] MEDS: carvediloL 25 MG TABLET PO SCH (08:54)
[2020-03-17] MEDS ORDERED: Multivit/Ca/Min/Fe/FA 1 TAB TABLET PO SCH (09:00)
== END 2020-03-16 17:50 ==
LOC: EMEROOARM 22:28 → 3NENU 22:28 → SUATTDRO 03-12 02:47 → 3NENU 03-12 03:48
PROVIDERS: ADMIT Student in an Organized Health Care Education/Training Program; ATTEND Family Medicine

== ENCOUNTER 2021-07-20 12:01 | Inpatient (IN) ==
[2021-07-20] MEDS ORDERED: Isovue-370 500 ML BOTTLE IVP ONE (12:08)
[2021-07-20 12:23] LABS: Hematocrit 49.4 % (37.5-50.1); Hemoglobin 16.3 g/dL (12.9-16.9); Mean Corpuscular Hemoglobin 29.9 pg (28.0-33.3); Mean Corpuscular Volume 90.6 fL (83.0-100.0); Mean Platelet Volume 10.1 fL (9.4-12.4); Platelet Count 149 K/mcL (140-400); Red Blood Count 5.45 M/mcL (4.19-5.50); White Blood Count 8.1 K/mcL (4.3-11.1)
[2021-07-20 12:34] LABS: INR 1.1; Prothrombin Time 12.8 Seconds (9.4-12.1)
[2021-07-20 12:37] LABS: Activated Partial Thrombo Time 30.7 Seconds (26.0-36.0)
[2021-07-20 13:09] LABS: BUN/Creatinine Ratio 13 (6-26); Blood Urea Nitrogen 17 mg/dL (8-23); Calcium 8.8 mg/dL (8.6-10.3); Carbon Dioxide 29 mEq/L (23-29); Chloride 99 mEq/L (98-107); Glucose 121 mg/dL (70-105); Osmolality,Calculated 283 (280-300); Sodium 135 mEq/L (136-145); eGFR For African Americans > 60 (> 60); eGFR For Non-African Americans 54 (> 60)
[2021-07-20] MEDS ORDERED: Aspirin 81 MG TAB.CHEW PO STA (14:20)
[2021-07-20 14:21] LABS: Troponin I < 0.03 ng/mL (< 0.04)
[2021-07-20] MEDS ORDERED: Naloxone 0.4 MG/ML INJ IVP PRN (14:51)
[2021-07-20] MEDS ORDERED: Perflutren Lipid Microsphere 1.3 ML in 0.9 % Sodium Chloride 8.7 ML IVP PRN (15:04)
[2021-07-20] MEDS ORDERED: Dextrose Gel 15 GM/37.5 ML TUBE PO PRN ×2 (15:05)
[2021-07-20] MEDS ORDERED: D5% in Water 1,000 ML IVC PRN (15:05)
[2021-07-20] MEDS ORDERED: *HR* Dextrose 50 % in Water (Syg) 50 ML SYRINGE IVP PRN (15:05)
[2021-07-20] MEDS: Insulin LISPRO 300 UNITS/3 ML VIAL SUBQ SCH ×2 (17:23→19:45)
[2021-07-21 08:04] LABS: Basophils % 0.4 %; Eosinophils # 0.3 K/mcL (0.0-0.6); Eosinophils % 3.7 %; Hematocrit 44.8 % (37.5-50.1); Immature Granulocytes % 0.3 % (0-4); Lymphocytes % 25.1 %; Mean Corpuscular HGB Conc 32.8 g/dL (31.6-35.5); Mean Corpuscular Hemoglobin 30.1 pg (28.0-33.3); Mean Corpuscular Volume 91.8 fL (83.0-100.0); Mean Platelet Volume 10.5 fL (9.4-12.4); Monocytes # 0.7 K/mcL (0.0-1.3); Monocytes % 9.4 %; Neutrophils # 4.8 K/mcL (1.6-8.9); Platelet Count 140 K/mcL (140-400); Red Blood Count 4.88 M/mcL (4.19-5.50); Red Cell Distribution Width 13.1 % (11.5-14.5); Segmented Neutrophils % 61.1 %; White Blood Count 7.9 K/mcL (4.3-11.1)
[2021-07-21] MEDS: Insulin LISPRO 300 UNITS/3 ML VIAL SUBQ SCH ×4 (08:09→22:02)
[2021-07-21 08:10] LABS: Hemoglobin 14.7 g/dL (12.9-16.9)
[2021-07-21 08:29] LABS: BUN/Creatinine Ratio 14 (6-26); Blood Urea Nitrogen 17 mg/dL (8-23); Calcium 8.4 mg/dL (8.6-10.3); Carbon Dioxide 27 mEq/L (23-29); Chloride 103 mEq/L (98-107); Glucose 102 mg/dL (70-105); Osmolality,Calculated 278 (280-300); Potassium 4.3 mEq/L (3.5-5.1); Sodium 133 mEq/L (136-145); eGFR For African Americans > 60 (> 60); eGFR For Non-African Americans 56 (> 60)
[2021-07-21] MEDS: Aspirin 81 MG TAB.CHEW PO SCH (14:58)
[2021-07-21] MEDS: *HR* Heparin 5,000 UNIT/ML VIAL SQ SCH (18:27)
[2021-07-22 03:11] VITALS: PULSE 52
[2021-07-22] MEDS: *HR* Heparin 5,000 UNIT/ML VIAL SQ SCH (05:16)
[2021-07-22 06:59] VITALS: BP 140/53; TEMP 97.9; O2SAT 92
[2021-07-22 07:48] LABS: Basophils # 0.1 K/mcL (0.0-0.2); Basophils % 0.7 %; Eosinophils # 0.3 K/mcL (0.0-0.6); Eosinophils % 3.7 %; Hematocrit 46.6 % (37.5-50.1); Hemoglobin 15.2 g/dL (12.9-16.9); Immature Granulocytes % 0.4 % (0-4); Lymphocytes # 1.5 K/mcL (0.6-4.6); Lymphocytes % 22.7 %; Mean Corpuscular HGB Conc 32.6 g/dL (31.6-35.5); Mean Corpuscular Hemoglobin 29.4 pg (28.0-33.3); Mean Corpuscular Volume 90.1 fL (83.0-100.0); Mean Platelet Volume 10.1 fL (9.4-12.4); Monocytes # 0.6 K/mcL (0.0-1.3); Monocytes % 9.2 %; Neutrophils # 4.3 K/mcL (1.6-8.9); Platelet Count 133 K/mcL (140-400); Red Blood Count 5.17 M/mcL (4.19-5.50); Red Cell Distribution Width 12.9 % (11.5-14.5); Segmented Neutrophils % 63.3 %; White Blood Count 6.8 K/mcL (4.3-11.1)
[2021-07-22 08:03] LABS: Chol/HDL Ratio 2.3 (0-4.9)
[2021-07-22 08:05] LABS: BUN/Creatinine Ratio 18 (6-26); Blood Urea Nitrogen 22 mg/dL (8-23); Calcium 8.4 mg/dL (8.6-10.3); Carbon Dioxide 26 mEq/L (23-29); Chloride 102 mEq/L (98-107); Glucose 183 mg/dL (70-105); Osmolality,Calculated 284 (280-300); Sodium 133 mEq/L (136-145); eGFR For African Americans > 60 (> 60); eGFR For Non-African Americans 58 (> 60)
[2021-07-22] MEDS: Insulin LISPRO 300 UNITS/3 ML VIAL SUBQ SCH (08:44)
[2021-07-22] MEDS: Aspirin 81 MG TAB.CHEW PO SCH (08:44)
[2021-07-22] MEDS ORDERED: amLODIPine 5 MG TABLET PO SCH (09:00)
[2021-07-22] MEDS ORDERED: Insulin DETEMIR 100 UNIT/ML X5UNITS SUBQ SCH (09:00)
[2021-07-22 10:11] LABS: Estimated Average Glucose 154 mg/dl
== END 2021-07-22 11:57 | disposition home health service (06) | DRG 65 ==
LOC: EMEROOARM 12:01 → 3BNU 12:01 → SUATTDRO 18:20
PROVIDERS: ADMIT Internal Medicine; ATTEND Internal Medicine

== ENCOUNTER 2021-10-05 08:03 | Inpatient (IN) ==
[2021-10-05] MEDS ORDERED: Isovue-370 500 ML BOTTLE IVP ONE (08:14)
[2021-10-05] MEDS ORDERED: Pantoprazole 40 MG VIAL IVP STA (08:20)
[2021-10-05] MEDS ORDERED: 0.9 % Sodium Chloride 1,000 ML IVC ONE (08:29)
[2021-10-05 09:14] LABS: Basophils % 0.3 %; Eosinophils % 0.4 %; Hematocrit 42.4 % (37.5-50.1); Hemoglobin 14.7 g/dL (12.9-16.9); Immature Granulocytes % 0.3 % (0-4); Lymphocytes # 0.8 K/mcL (0.6-4.6); Lymphocytes % 7.3 %; Mean Corpuscular HGB Conc 34.7 g/dL (31.6-35.5); Mean Corpuscular Hemoglobin 30.9 pg (28.0-33.3); Mean Corpuscular Volume 89.1 fL (83.0-100.0); Mean Platelet Volume 10.6 fL (9.4-12.4); Monocytes # 0.7 K/mcL (0.0-1.3); Monocytes % 6.1 %; Neutrophils # 9.1 K/mcL (1.6-8.9); Platelet Count 127 K/mcL (140-400); Red Blood Count 4.76 M/mcL (4.19-5.50); Red Cell Distribution Width 12.6 % (11.5-14.5); Segmented Neutrophils % 85.6 %; White Blood Count 10.6 K/mcL (4.3-11.1)
[2021-10-05 09:22] LABS: INR 1.1; Prothrombin Time 12.4 Seconds (9.4-12.1)
[2021-10-05 09:33] LABS: Albumin 3.8 g/dL (3.5-5.7); Albumin/Globulin Ratio 1.7 (1.1-2.2); BUN/Creatinine Ratio 14 (6-26); Bilirubin,Direct 0.2 mg/dL (0.0-0.2); Bilirubin,Indirect 0.5 mg/dL (0.0-1.0); Bilirubin,Total 0.7 mg/dL (0.3-1.0); Blood Urea Nitrogen 16 mg/dL (8-23); Calcium 8.2 mg/dL (8.6-10.3); Carbon Dioxide 28 mEq/L (23-29); Chloride 94 mEq/L (98-107); Globulin 2.3 g/dL (2.4-3.5); Glucose 215 mg/dL (70-105); Osmolality,Calculated 274 (280-300); Potassium 4.6 mEq/L (3.5-5.1); Sodium 128 mEq/L (136-145); Total Protein 6.1 g/dL (6.4-8.9); eGFR For African Americans > 60 (> 60); eGFR For Non-African Americans > 60 (> 60)
[2021-10-05 09:35] LABS: Influenza A PCR Negative (Negative); Influenza B PCR Negative (Negative); Resp. Syncytial Virus PCR Negative (Negative)
[2021-10-05] MEDS ORDERED: cefTRIAXone 1,000 MG in 0.9 % Sodium Chloride Mini Bag 100 ML IVPB ONE (09:35)
[2021-10-05 10:08] LABS: SARS-CoV-2 by PCR (In House) Negative (Negative)
[2021-10-05] MEDS ORDERED: Ondansetron 4 MG/2 ML VIAL IM ONE (11:06)
[2021-10-05] MEDS ORDERED: Naloxone 0.4 MG/ML INJ IVP PRN (11:32)
[2021-10-05] MEDS ORDERED: Ondansetron 4 MG/2 ML VIAL IVP PRN (11:32)
[2021-10-05] MEDS ORDERED: *HR* Dextrose 50 % in Water (Syg) 50 ML SYRINGE IVP PRN (11:35)
[2021-10-05] MEDS ORDERED: D5% in Water 1,000 ML IVC PRN (11:35)
[2021-10-05] MEDS ORDERED: Dextrose 4 GM Chewable Tablets PO PRN ×2 (11:35)
[2021-10-05] MEDS: Azithromycin 500 MG in 0.9 % Sodium Chloride 250 ML IVPB SCH (13:44)
[2021-10-05] MEDS: Insulin LISPRO 300 UNITS/3 ML VIAL SUBQ SCH ×2 (14:45→18:05)
[2021-10-05] MEDS ORDERED: *HR* LORazepam 2 MG/ML VIAL IVP PRN ×3 (16:04)
[2021-10-05] MEDS: 0.9 % Sodium Chloride 1,000 ML IVC SCH (17:16)
[2021-10-05] MEDS: Thiamine (B-1) 100 MG, Folic Acid 1 MG in 0.9 % Sodium Chloride 500 ML IVPB SCH (17:17)
[2021-10-05] MEDS: Pantoprazole 40 MG VIAL IVP SCH (17:17)
[2021-10-05] MEDS: lisinopriL 20 MG TABLET PO SCH (22:07)
[2021-10-06] MEDS: Insulin LISPRO 300 UNITS/3 ML VIAL SUBQ SCH ×4 (00:56→17:47)
[2021-10-06 02:35] LABS: Eosinophils % 1.5 %; Mean Corpuscular Hemoglobin 30.7 pg (28.0-33.3); Red Blood Count 4.01 M/mcL (4.19-5.50)
[2021-10-06 02:37] LABS: Basophils % 0.2 %; Eosinophils # 0.1 K/mcL (0.0-0.6); Hematocrit 36.5 % (37.5-50.1); Hemoglobin 12.3 g/dL (12.9-16.9); Immature Granulocytes % 0.4 % (0-4); Immature Platelets 3.3 % (1.1-6.1); Lymphocytes # 1.6 K/mcL (0.6-4.6); Lymphocytes % 18.7 %; Mean Corpuscular HGB Conc 33.7 g/dL (31.6-35.5); Mean Platelet Volume 10.5 fL (9.4-12.4); Monocytes # 0.6 K/mcL (0.0-1.3); Monocytes % 7.4 %; Neutrophils # 6.2 K/mcL (1.6-8.9); Platelet Count 111 K/mcL (140-400); Red Cell Distribution Width 12.7 % (11.5-14.5); Segmented Neutrophils % 71.8 %; White Blood Count 8.6 K/mcL (4.3-11.1)
[2021-10-06 02:53] LABS: BUN/Creatinine Ratio 13 (6-26); Blood Urea Nitrogen 12 mg/dL (8-23); Calcium 7.6 mg/dL (8.6-10.3); Carbon Dioxide 27 mEq/L (23-29); Chloride 102 mEq/L (98-107); Glucose 120 mg/dL (70-105); Magnesium 1.7 mg/dL (1.6-2.6); Osmolality,Calculated 275 (280-300); Phosphorous 2.1 mg/dL (2.7-4.5); Potassium 3.7 mEq/L (3.5-5.1); Sodium 132 mEq/L (136-145); eGFR For African Americans > 60 (> 60); eGFR For Non-African Americans > 60 (> 60)
[2021-10-06] MEDS: 0.9 % Sodium Chloride 1,000 ML IVC SCH ×2 (04:09→14:11)
[2021-10-06] MEDS: Pantoprazole 40 MG VIAL IVP SCH ×2 (05:11→18:27)
[2021-10-06] MEDS ORDERED: *HR* Propofol 200 MG/20 ML VIAL IVP ONE ×2 (08:53)
[2021-10-06] MEDS ORDERED: Lidocaine -MPF 2% 5 ML VIAL ONE (08:53)
[2021-10-06] MEDS: lisinopriL 20 MG TABLET PO SCH ×3 (09:00→20:13)
[2021-10-06] MEDS: Baclofen 10 MG TABLET PO SCH ×2 (09:00→14:06)
[2021-10-06] MEDS: amLODIPine 5 MG TABLET PO SCH ×2 (09:00→14:06)
[2021-10-06] MEDS: cefTRIAXone 1,000 MG in 0.9 % Sodium Chloride 10 ML IVPB SCH ×2 (09:00→14:07)
[2021-10-06] MEDS ORDERED: *HR* EPINEPHrine 1 MG/10 ML SYRINGE INTRATRACH PRN (11:10)
[2021-10-06] MEDS ORDERED: Ipratropium/Albuterol Neb 3 ML IH ONE (13:48)
[2021-10-06] MEDS: Azithromycin 500 MG in 0.9 % Sodium Chloride 250 ML IVPB SCH (14:08)
[2021-10-06] MEDS: carvediloL 6.25 MG TABLET PO SCH (16:56)
[2021-10-06] MEDS: Thiamine (B-1) 100 MG, Folic Acid 1 MG in 0.9 % Sodium Chloride 500 ML IVPB SCH (20:13)
[2021-10-07] MEDS: Insulin LISPRO 300 UNITS/3 ML VIAL SUBQ SCH ×5 (00:59→23:52)
[2021-10-07 01:07] LABS: Basophils % 0.4 %; Eosinophils # 0.3 K/mcL (0.0-0.6); Hematocrit 31.5 % (37.5-50.1); Immature Granulocytes % 0.3 % (0-4); Lymphocytes # 1.5 K/mcL (0.6-4.6); Lymphocytes % 19.8 %; Mean Corpuscular HGB Conc 33.3 g/dL (31.6-35.5); Mean Corpuscular Hemoglobin 30.4 pg (28.0-33.3); Mean Corpuscular Volume 91.3 fL (83.0-100.0); Mean Platelet Volume 10.6 fL (9.4-12.4); Monocytes # 0.6 K/mcL (0.0-1.3); Monocytes % 8.8 %; Neutrophils # 4.9 K/mcL (1.6-8.9); Platelet Count 118 K/mcL (140-400); Red Blood Count 3.45 M/mcL (4.19-5.50); Red Cell Distribution Width 13.1 % (11.5-14.5); Segmented Neutrophils % 66.7 %; White Blood Count 7.3 K/mcL (4.3-11.1)
[2021-10-07 01:10] LABS: Hemoglobin 10.5 g/dL (12.9-16.9)
[2021-10-07 01:26] LABS: BUN/Creatinine Ratio 22 (6-26); Blood Urea Nitrogen 18 mg/dL (8-23); Calcium 7.4 mg/dL (8.6-10.3); Carbon Dioxide 24 mEq/L (23-29); Chloride 105 mEq/L (98-107); Glucose 143 mg/dL (70-105); Osmolality,Calculated 284 (280-300); Potassium 4.3 mEq/L (3.5-5.1); Sodium 135 mEq/L (136-145); eGFR For African Americans > 60 (> 60); eGFR For Non-African Americans > 60 (> 60)
[2021-10-07] MEDS: Pantoprazole 40 MG VIAL IVP SCH ×2 (05:35→17:43)
[2021-10-07] MEDS: carvediloL 6.25 MG TABLET PO SCH ×2 (07:37→17:42)
[2021-10-07] MEDS: Baclofen 10 MG TABLET PO SCH (08:10)
[2021-10-07] MEDS: Furosemide 20 MG TABLET PO SCH (08:10)
[2021-10-07] MEDS: cefTRIAXone 1,000 MG in 0.9 % Sodium Chloride 10 ML IVPB SCH (08:10)
[2021-10-07] MEDS: lisinopriL 20 MG TABLET PO SCH ×2 (08:10→20:20)
[2021-10-07] MEDS: amLODIPine 5 MG TABLET PO SCH (08:10)
[2021-10-07] MEDS ORDERED: Ondansetron ODT 4 MG TAB.RAPDIS PO PRN (09:00)
[2021-10-07] MEDS: Ipratropium/Albuterol Neb 3 ML IH PRN ×2 (09:28→18:04)
[2021-10-07] MEDS: Azithromycin 500 MG in 0.9 % Sodium Chloride 250 ML IVPB SCH (12:34)
[2021-10-07] MEDS: Thiamine (B-1) 100 MG, Folic Acid 1 MG in 0.9 % Sodium Chloride 500 ML IVPB SCH (18:41)
[2021-10-07] MEDS ORDERED: Ipratropium Neb 0.5 MG NEBULIZER IH SCH (22:00)
[2021-10-08 00:27] LABS: Hematocrit 22.3 % (37.5-50.1)
[2021-10-08 00:28] LABS: Hemoglobin 7.6 g/dL (12.9-16.9)
[2021-10-08 00:49] LABS: BUN/Creatinine Ratio 40 (6-26); Blood Urea Nitrogen 42 mg/dL (8-23); Calcium 7.1 mg/dL (8.6-10.3); Carbon Dioxide 24 mEq/L (23-29); Chloride 106 mEq/L (98-107); Glucose 170 mg/dL (70-105); Osmolality,Calculated 294 (280-300); Potassium 4.1 mEq/L (3.5-5.1); Sodium 135 mEq/L (136-145); eGFR For African Americans > 60 (> 60); eGFR For Non-African Americans > 60 (> 60)
[2021-10-08 00:50] LABS: Iron 28 mcg/dL (65-175)
[2021-10-08 01:09] LABS: Ferritin 62 ng/mL (20-250)
[2021-10-08] MEDS: Ipratropium/Albuterol Neb 3 ML IH SCH ×4 (04:41→20:39)
[2021-10-08 04:48] LABS: Basophils % 0.4 %; Eosinophils # 0.3 K/mcL (0.0-0.6); Eosinophils % 4.3 %; Hematocrit 22.7 % (37.5-50.1); Hemoglobin 7.7 g/dL (12.9-16.9); Immature Granulocytes % 0.4 % (0-4); Lymphocytes # 1.8 K/mcL (0.6-4.6); Lymphocytes % 25.8 %; Mean Corpuscular HGB Conc 33.9 g/dL (31.6-35.5); Mean Corpuscular Hemoglobin 31.3 pg (28.0-33.3); Mean Corpuscular Volume 92.3 fL (83.0-100.0); Monocytes # 0.5 K/mcL (0.0-1.3); Monocytes % 7.1 %; Neutrophils # 4.3 K/mcL (1.6-8.9); Platelet Count 149 K/mcL (140-400); Red Blood Count 2.46 M/mcL (4.19-5.50); White Blood Count 6.9 K/mcL (4.3-11.1)
[2021-10-08] MEDS: Insulin LISPRO 300 UNITS/3 ML VIAL SUBQ SCH ×3 (04:50→17:17)
[2021-10-08] MEDS: Pantoprazole 40 MG VIAL IVP SCH ×2 (05:12→19:00)
[2021-10-08] MEDS ORDERED: 0.9 % Sodium Chloride 250 ML IVC SCH (07:30)
[2021-10-08] MEDS: carvediloL 6.25 MG TABLET PO SCH ×2 (08:17→17:12)
[2021-10-08] MEDS: cefTRIAXone 1,000 MG in 0.9 % Sodium Chloride 10 ML IVPB SCH (08:55)
[2021-10-08] MEDS: Furosemide 20 MG TABLET PO SCH (09:11)
[2021-10-08] MEDS: lisinopriL 20 MG TABLET PO SCH ×2 (09:11→20:22)
[2021-10-08] MEDS: Baclofen 10 MG TABLET PO SCH (09:11)
[2021-10-08] MEDS: amLODIPine 5 MG TABLET PO SCH (09:11)
[2021-10-08 10:49] LABS: Adenovirus F 40/41 PCR Not detected (Not detect); Astrovirus PCR Not detected (Not detect); C.difficile Toxin A/B Gene PCR Not detected (Not detect); Campylobacter by PCR Not detected (Not detect); Cryptosporidium by PCR Not detected (Not detect); Cyclospora cayetanensis PCR Not detected (Not detect); E. coli O157 by PCR Not detected (Not detect); Entamoeba histolytica PCR Not detected (Not detect); Enteroaggregative E.coli(EAEC) Not detected (Not detect); Enteropathogenic E.coli(EPEC) Not detected (Not detect); Enterotoxigenic E.coli (ETEC) Not detected (Not detect); Giardia lamblia PCR Not detected (Not detect); Norovirus GI/GII PCR Not detected (Not detect); Plesiomonas shigelloides PCR Not detected (Not detect); Rotavirus A PCR Not detected (Not detect); Salmonella PCR Not detected (Not detect); Sapovirus PCR Not detected (Not detect); Shig/EnteroinvasiveE coli EIEC Not detected (Not detect); Shigalike tox-prod E coli STEC Not detected (Not detect); Vibrio PCR Not detected (Not detect); Vibrio cholerae PCR Not detected (Not detect); Yersinia enterocolitica PCR Not detected (Not detect)
[2021-10-08] MEDS ORDERED: Furosemide 20 MG/2 ML VIAL IVP ONE (13:00)
[2021-10-08 14:00] LABS: Hematocrit 26.9 % (37.5-50.1); Hemoglobin 9.2 g/dL (12.9-16.9)
[2021-10-08 14:08] LABS: INR 1.2; Prothrombin Time 12.9 Seconds (9.4-12.1)
[2021-10-08] MEDS: Azithromycin 500 MG in 0.9 % Sodium Chloride 250 ML IVPB SCH (14:24)
[2021-10-08] MEDS: Pantoprazole 40 MG in 0.9 % Sodium Chloride Mini Bag 100 ML IVC SCH (22:35)
[2021-10-09] MEDS: Insulin LISPRO 300 UNITS/3 ML VIAL SUBQ SCH ×4 (01:00→18:05)
[2021-10-09] MEDS: Ipratropium/Albuterol Neb 3 ML IH SCH ×4 (02:10→19:39)
[2021-10-09] MEDS: Pantoprazole 40 MG in 0.9 % Sodium Chloride Mini Bag 100 ML IVC SCH ×5 (03:41→19:40)
[2021-10-09 04:22] LABS: Basophils % 0.5 %; Eosinophils # 0.3 K/mcL (0.0-0.6); Eosinophils % 4.9 %; Hematocrit 24.4 % (37.5-50.1); Hemoglobin 8.4 g/dL (12.9-16.9); Immature Granulocytes % 0.4 % (0-4); Lymphocytes # 1.4 K/mcL (0.6-4.6); Lymphocytes % 24.9 %; Mean Corpuscular HGB Conc 34.4 g/dL (31.6-35.5); Mean Corpuscular Hemoglobin 31.1 pg (28.0-33.3); Mean Corpuscular Volume 90.4 fL (83.0-100.0); Mean Platelet Volume 10.7 fL (9.4-12.4); Monocytes # 0.5 K/mcL (0.0-1.3); Monocytes % 8.3 %; Neutrophils # 3.5 K/mcL (1.6-8.9); Platelet Count 146 K/mcL (140-400); Red Cell Distribution Width 13.9 % (11.5-14.5); White Blood Count 5.7 K/mcL (4.3-11.1)
[2021-10-09 04:41] LABS: BUN/Creatinine Ratio 32 (6-26); Blood Urea Nitrogen 31 mg/dL (8-23); Calcium 7.5 mg/dL (8.6-10.3); Carbon Dioxide 25 mEq/L (23-29); Chloride 106 mEq/L (98-107); Glucose 195 mg/dL (70-105); Osmolality,Calculated 298 (280-300); Potassium 3.8 mEq/L (3.5-5.1); Sodium 138 mEq/L (136-145); eGFR For African Americans > 60 (> 60); eGFR For Non-African Americans > 60 (> 60)
[2021-10-09] MEDS: Baclofen 10 MG TABLET PO SCH (08:22)
[2021-10-09] MEDS: Furosemide 20 MG TABLET PO SCH (08:23)
[2021-10-09] MEDS: carvediloL 6.25 MG TABLET PO SCH ×2 (08:24→17:42)
[2021-10-09] MEDS: lisinopriL 20 MG TABLET PO SCH ×2 (08:24→19:38)
[2021-10-09] MEDS: amLODIPine 5 MG TABLET PO SCH (08:25)
[2021-10-09] MEDS: cefTRIAXone 1,000 MG in 0.9 % Sodium Chloride 10 ML IVPB SCH (08:28)
[2021-10-09] MEDS ORDERED: Metoclopramide 10 MG/2 ML VIAL IVP ONE (10:00)
[2021-10-09] MEDS ORDERED: *HR* Propofol 200 MG/20 ML VIAL IVP ONE (12:43)
[2021-10-09] MEDS ORDERED: Lidocaine -MPF 2% 5 ML VIAL ONE (12:43)
[2021-10-09] MEDS: Azithromycin 500 MG in 0.9 % Sodium Chloride 250 ML IVPB SCH (13:00)
[2021-10-09] MEDS: Ringers Solution, Lactated 1,000 ML IVC SCH (17:41)
[2021-10-10] MEDS: Insulin LISPRO 300 UNITS/3 ML VIAL SUBQ SCH ×4 (00:52→18:47)
[2021-10-10] MEDS: Pantoprazole 40 MG in 0.9 % Sodium Chloride Mini Bag 100 ML IVC SCH ×5 (02:16→22:59)
[2021-10-10] MEDS: Ipratropium/Albuterol Neb 3 ML IH SCH ×5 (03:41→23:16)
[2021-10-10 08:27] LABS: Basophils % 0.6 %; Eosinophils # 0.3 K/mcL (0.0-0.6); Eosinophils % 5.7 %; Hematocrit 23.1 % (37.5-50.1); Hemoglobin 7.7 g/dL (12.9-16.9); Immature Granulocytes % 0.4 % (0-4); Lymphocytes # 1.2 K/mcL (0.6-4.6); Lymphocytes % 23.8 %; Mean Corpuscular HGB Conc 33.3 g/dL (31.6-35.5); Mean Corpuscular Hemoglobin 30.1 pg (28.0-33.3); Mean Corpuscular Volume 90.2 fL (83.0-100.0); Mean Platelet Volume 10.3 fL (9.4-12.4); Monocytes # 0.4 K/mcL (0.0-1.3); Monocytes % 7.8 %; Neutrophils # 3.2 K/mcL (1.6-8.9); Nucleated Red Blood Cells 0.4 /100 WBC (0); Platelet Count 141 K/mcL (140-400); Red Blood Count 2.56 M/mcL (4.19-5.50); Red Cell Distribution Width 13.4 % (11.5-14.5); Segmented Neutrophils % 61.7 %; White Blood Count 5.1 K/mcL (4.3-11.1)
[2021-10-10 08:36] LABS: BUN/Creatinine Ratio 18 (6-26); Blood Urea Nitrogen 15 mg/dL (8-23); Calcium 7.3 mg/dL (8.6-10.3); Carbon Dioxide 27 mEq/L (23-29); Chloride 106 mEq/L (98-107); Glucose 205 mg/dL (70-105); Osmolality,Calculated 291 (280-300); Potassium 3.4 mEq/L (3.5-5.1); Sodium 137 mEq/L (136-145); eGFR For African Americans > 60 (> 60); eGFR For Non-African Americans > 60 (> 60)
[2021-10-10] MEDS: cefTRIAXone 1,000 MG in 0.9 % Sodium Chloride 10 ML IVPB SCH (08:37)
[2021-10-10] MEDS ORDERED: *HR* Propofol 200 MG/20 ML VIAL IVP ONE (14:09)
[2021-10-10] MEDS: Furosemide 20 MG TABLET PO SCH (14:37)
[2021-10-10] MEDS: Baclofen 10 MG TABLET PO SCH (14:37)
[2021-10-10] MEDS: lisinopriL 20 MG TABLET PO SCH ×2 (14:37→20:52)
[2021-10-10] MEDS: carvediloL 6.25 MG TABLET PO SCH ×2 (14:37→18:47)
[2021-10-10] MEDS: amLODIPine 5 MG TABLET PO SCH (14:37)
[2021-10-10] MEDS: Ringers Solution, Lactated 1,000 ML IVC SCH (20:52)
[2021-10-11] MEDS: Ipratropium/Albuterol Neb 3 ML IH SCH ×4 (03:43→20:01)
[2021-10-11] MEDS: Insulin LISPRO 300 UNITS/3 ML VIAL SUBQ SCH ×4 (03:47→20:05)
[2021-10-11] MEDS: Pantoprazole 40 MG in 0.9 % Sodium Chloride Mini Bag 100 ML IVC SCH ×2 (04:00→08:38)
[2021-10-11 04:33] LABS: Basophils % 0.5 %; Eosinophils # 0.3 K/mcL (0.0-0.6); Eosinophils % 4.1 %; Hematocrit 27.2 % (37.5-50.1); Hemoglobin 9.1 g/dL (12.9-16.9); Immature Granulocytes % 0.5 % (0-4); Lymphocytes # 1.2 K/mcL (0.6-4.6); Lymphocytes % 17.5 %; Mean Corpuscular HGB Conc 33.5 g/dL (31.6-35.5); Mean Corpuscular Hemoglobin 30.2 pg (28.0-33.3); Mean Corpuscular Volume 90.4 fL (83.0-100.0); Monocytes # 0.5 K/mcL (0.0-1.3); Monocytes % 7.3 %; Neutrophils # 4.7 K/mcL (1.6-8.9); Platelet Count 154 K/mcL (140-400); Red Blood Count 3.01 M/mcL (4.19-5.50); Red Cell Distribution Width 13.6 % (11.5-14.5); Segmented Neutrophils % 70.1 %; White Blood Count 6.6 K/mcL (4.3-11.1)
[2021-10-11 04:51] LABS: BUN/Creatinine Ratio 10 (6-26); Blood Urea Nitrogen 7 mg/dL (8-23); Calcium 7.3 mg/dL (8.6-10.3); Carbon Dioxide 25 mEq/L (23-29); Chloride 107 mEq/L (98-107); Glucose 201 mg/dL (70-105); Osmolality,Calculated 290 (280-300); Potassium 3.4 mEq/L (3.5-5.1); Sodium 138 mEq/L (136-145); eGFR For African Americans > 60 (> 60); eGFR For Non-African Americans > 60 (> 60)
[2021-10-11] MEDS: Ringers Solution, Lactated 1,000 ML IVC SCH (05:54)
[2021-10-11] MEDS: Azithromycin 500 MG in 0.9 % Sodium Chloride 250 ML IVPB SCH (07:21)
[2021-10-11] MEDS: cefTRIAXone 1,000 MG in 0.9 % Sodium Chloride 10 ML IVPB SCH (08:39)
[2021-10-11] MEDS: carvediloL 6.25 MG TABLET PO SCH ×2 (08:40→17:20)
[2021-10-11] MEDS: Baclofen 10 MG TABLET PO SCH (08:40)
[2021-10-11] MEDS: lisinopriL 20 MG TABLET PO SCH ×2 (08:41→22:11)
[2021-10-11] MEDS: Furosemide 20 MG TABLET PO SCH (08:42)
[2021-10-11] MEDS: amLODIPine 5 MG TABLET PO SCH (08:43)
[2021-10-11] MEDS: (Colestipol Hcl [Colestid] 1 GM Tablet) PO SCH (08:46)
[2021-10-11] MEDS: Aspirin 81 MG TAB.CHEW PO SCH (08:50)
[2021-10-11] MEDS: Insulin DETEMIR 100 UNIT/ML X5UNITS SUBQ SCH (08:56)
[2021-10-11] MEDS: Pantoprazole 40 MG VIAL IVP SCH (17:24)
[2021-10-11] MEDS ORDERED: Pantoprazole 40 MG VIAL IVP SCH (18:00)
[2021-10-12] MEDS: Insulin LISPRO 300 UNITS/3 ML VIAL SUBQ SCH ×4 (00:41→16:34)
[2021-10-12] MEDS: Ipratropium/Albuterol Neb 3 ML IH SCH ×4 (03:27→21:00)
[2021-10-12 05:34] LABS: Basophils % 0.3 %; Eosinophils # 0.4 K/mcL (0.0-0.6); Eosinophils % 6.6 %; Hematocrit 26.7 % (37.5-50.1); Hemoglobin 9.1 g/dL (12.9-16.9); Immature Granulocytes % 0.5 % (0-4); Lymphocytes # 1.4 K/mcL (0.6-4.6); Lymphocytes % 22.8 %; Mean Corpuscular HGB Conc 34.1 g/dL (31.6-35.5); Mean Corpuscular Hemoglobin 31.2 pg (28.0-33.3); Mean Corpuscular Volume 91.4 fL (83.0-100.0); Mean Platelet Volume 10.4 fL (9.4-12.4); Monocytes # 0.5 K/mcL (0.0-1.3); Monocytes % 7.8 %; Neutrophils # 3.7 K/mcL (1.6-8.9); Platelet Count 158 K/mcL (140-400); Red Blood Count 2.92 M/mcL (4.19-5.50); Red Cell Distribution Width 13.7 % (11.5-14.5); White Blood Count 5.9 K/mcL (4.3-11.1)
[2021-10-12 05:35] LABS: BUN/Creatinine Ratio 9 (6-26); Blood Urea Nitrogen 8 mg/dL (8-23); Calcium 7.4 mg/dL (8.6-10.3); Carbon Dioxide 28 mEq/L (23-29); Chloride 105 mEq/L (98-107); Glucose 186 mg/dL (70-105); Magnesium 1.5 mg/dL (1.6-2.6); Osmolality,Calculated 287 (280-300); Phosphorous 2.8 mg/dL (2.7-4.5); Potassium 3.4 mEq/L (3.5-5.1); Sodium 137 mEq/L (136-145); eGFR For African Americans > 60 (> 60); eGFR For Non-African Americans > 60 (> 60)
[2021-10-12] MEDS: Pantoprazole 40 MG VIAL IVP SCH ×2 (06:20→16:34)
[2021-10-12] MEDS: cefTRIAXone 1,000 MG in 0.9 % Sodium Chloride 10 ML IVPB SCH (08:22)
[2021-10-12] MEDS: lisinopriL 20 MG TABLET PO SCH ×2 (08:23→19:49)
[2021-10-12] MEDS: Baclofen 10 MG TABLET PO SCH (08:23)
[2021-10-12] MEDS: carvediloL 6.25 MG TABLET PO SCH ×2 (08:24→16:34)
[2021-10-12] MEDS: Aspirin 81 MG TAB.CHEW PO SCH (08:24)
[2021-10-12] MEDS: (Colestipol Hcl [Colestid] 1 GM Tablet) PO SCH (08:24)
[2021-10-12] MEDS: amLODIPine 5 MG TABLET PO SCH (08:24)
[2021-10-12] MEDS: Furosemide 20 MG TABLET PO SCH (08:24)
[2021-10-12] MEDS: Insulin DETEMIR 100 UNIT/ML X5UNITS SUBQ SCH (08:27)
[2021-10-13] MEDS: Insulin LISPRO 300 UNITS/3 ML VIAL SUBQ SCH ×5 (00:33→17:28)
[2021-10-13 02:01] LABS: BUN/Creatinine Ratio 10 (6-26); Blood Urea Nitrogen 9 mg/dL (8-23); Calcium 7.6 mg/dL (8.6-10.3); Carbon Dioxide 27 mEq/L (23-29); Chloride 107 mEq/L (98-107); Glucose 141 mg/dL (70-105); Magnesium 1.8 mg/dL (1.6-2.6); Osmolality,Calculated 287 (280-300); Potassium 3.7 mEq/L (3.5-5.1); Sodium 138 mEq/L (136-145); eGFR For African Americans > 60 (> 60); eGFR For Non-African Americans > 60 (> 60)
[2021-10-13] MEDS: Ipratropium/Albuterol Neb 3 ML IH SCH ×5 (04:21→19:38)
[2021-10-13] MEDS: Pantoprazole 40 MG VIAL IVP SCH ×2 (05:16→17:09)
[2021-10-13] MEDS: cefTRIAXone 1,000 MG in 0.9 % Sodium Chloride 10 ML IVPB SCH (08:07)
[2021-10-13] MEDS: Furosemide 20 MG TABLET PO SCH (08:08)
[2021-10-13] MEDS: Baclofen 10 MG TABLET PO SCH (08:08)
[2021-10-13] MEDS: carvediloL 6.25 MG TABLET PO SCH ×2 (08:08→17:09)
[2021-10-13] MEDS: Aspirin 81 MG TAB.CHEW PO SCH (08:08)
[2021-10-13] MEDS: amLODIPine 5 MG TABLET PO SCH (08:08)
[2021-10-13] MEDS: lisinopriL 20 MG TABLET PO SCH ×2 (08:08→20:38)
[2021-10-13] MEDS: (Colestipol Hcl [Colestid] 1 GM Tablet) PO SCH (08:09)
[2021-10-13] MEDS: Insulin DETEMIR 100 UNIT/ML X5UNITS SUBQ SCH (08:15)
[2021-10-13 16:08] LABS: Influenza A PCR Negative (Negative); Influenza B PCR Negative (Negative); Resp. Syncytial Virus PCR Negative (Negative)
[2021-10-13 16:27] LABS: SARS-CoV-2 by PCR (In House) Negative (Negative)
[2021-10-14] MEDS: Insulin LISPRO 300 UNITS/3 ML VIAL SUBQ SCH ×3 (01:03→11:57)
[2021-10-14] MEDS: Ipratropium/Albuterol Neb 3 ML IH SCH ×2 (04:25→07:52)
[2021-10-14] MEDS: Pantoprazole 40 MG VIAL IVP SCH (04:58)
[2021-10-14] MEDS: lisinopriL 20 MG TABLET PO SCH (07:37)
[2021-10-14] MEDS: Baclofen 10 MG TABLET PO SCH (07:37)
[2021-10-14] MEDS: amLODIPine 5 MG TABLET PO SCH (07:37)
[2021-10-14] MEDS: Aspirin 81 MG TAB.CHEW PO SCH (07:37)
[2021-10-14] MEDS: Furosemide 20 MG TABLET PO SCH (07:37)
[2021-10-14] MEDS: carvediloL 6.25 MG TABLET PO SCH (07:37)
[2021-10-14] MEDS: (Colestipol Hcl [Colestid] 1 GM Tablet) PO SCH (07:38)
[2021-10-14] MEDS: Insulin DETEMIR 100 UNIT/ML X5UNITS SUBQ SCH (07:39)
[2021-10-14 10:24] VITALS: BP 142/64; PULSE 52; TEMP 97.7; O2SAT 98
== END 2021-10-14 12:55 | DRG 871 ==
LOC: 3BNU 08:03 → EMEROOARM 08:03 → SUATTDRO 12:09 → 3BNU 13:09 → SUATTDRO 10-08 17:10
PROVIDERS: ADMIT Student in an Organized Health Care Education/Training Program; ATTEND Internal Medicine
PROC: ENDOEBX (2021-10-06 09:35)